=== PATIENT | female | born 1955 | race Caucasian/White ===

== ENCOUNTER → 2017-10-26 14:33 | Outpatient (CLI) | payer OTHER, SELFPAY ==
--- NOTE | 2017-10-26 | XR_ITS ---
XR foot LT min 3V Ordering Physician: Rosemary Thompson Patient Age: 61 years: Female HISTORY: ITS.REASON: LT FOOT PAIN Medial left foot pain TECHNIQUE: 3 views left foot COMPARISON : FINDINGS Hallux valgus deformity . . The first phalangeal metatarsal angle 40 degrees reflects such. Mild degenerative changes first MTP joint. Sclerosis about the first MTP joint. Mild flexion deformity, at toes 2, 3, 4 and 5 toes , with developing hammertoe appearance at these toes Tarsals unremarkable . Early Plantar calcaneal spur 6 mm length. IMPRESSION: Hallux valgus deformity .
== END ==
PROVIDERS: PCP Nurse Practitioner Family; Visit Provider Nurse Practitioner Family
DX: G89.11 Acute pain due to trauma (principal)
CPT/HCPCS: 73630

== ENCOUNTER → 2018-03-09 11:02 | Outpatient (CLI) | payer OTHER, SELFPAY ==
--- NOTE | 2018-03-09 11:03 | MM_ITS ---
MM Dig screening mamm BI w/CAD CAD Screening ORDERING PHYSICIAN : Yuliana Melissa MD PATIENT AGE: 62 years GENDER: Female COMPARISON: Previous mammograms January 2016 [facility] and outside studies [facility] September 2012 and 2010 INDICATION: Routine screening. No hormones no new complaints. Noncontributory family history TECHNIQUE: Standard CC and MLO images were obtained. R2 CAD reviewed. FINDINGS: No new findings. No dominant mass nor suspicious calcifications. CAD computer review highlights no areas of concern either. Very Minor asymmetry stable . Stable small benign intramammary lymph node seen at the deep axilla tail of both right and left breast again observed. IMPRESSION:......... Negative Stable bilateral mammogram with no significant new areas of concern. BI-RADS Category: 1 Negative RECOMMENDED FOLLOW-UP: 1YR - 1 YEAR FOLLOW-UP (A letter has been sent to the patient regarding results of the study.)
== END ==
PROVIDERS: Family Provider Nurse Practitioner Family; PCP Nurse Practitioner Family; Visit Provider Obstetrics & Gynecology
DX: Z12.31 Encounter for screening mammogram for malignant neoplasm of breast (principal)
CPT/HCPCS: 77067

== ENCOUNTER 2018-05-30 23:02 | Inpatient (IN) ==
[2018-05-30 23:21] LABS: Basophils % 0.4 % (0.1-2.0); Eosinophils # 0.3 K/mm3 (0.0-0.4); Hematocrit 40.4 % (37.0-47.0); Hemoglobin 13.4 g/dL (12.2-16.2); Lymphocytes # 2.6 K/mm3 (0.7-4.5); Lymphocytes % 31.1 K/mm3 (10-50); Mean Corpuscular HGB Conc 33.1 g/dL (31.8-35.4); Mean Corpuscular Hemoglobin 30.2 pg (27.0-31.2); Mean Corpuscular Volume 91.4 fl (81-99); Mean Platelet Volume 7.6 fl (7.4-10.4); Monocytes # 0.4 K/mm3 (0.1-1.0); Neutrophils # 4.9 K/mm3 (1.8-7.8); Neutrophils % 59.4 % (37.0-80.0); Platelet Count 246 K/mm3 (142-424); Red Blood Count 4.42 M/mm3 (4.20-5.40); Red Cell Distribution Width 13.7 % (11.5-17.5); White Blood Count 8.3 K/mm3 (4.8-10.8)
[2018-05-30 23:50] LABS: Anion Gap 13.7 mEq/L (5-15); Calcium 9.1 mg/dL (8.5-10.1); Potassium 3.7 mmoL/L (3.5-5.1)
--- NOTE | 2018-05-30 23:53 | Emergency Department Note ---
ED Disposition Clinical Impression: Non-ST elevation [place] (NSTEMI) Disposition: Still a Patient Condition on Discharge: Serious - Critical Care Critical Care Time: Yes Attestation: On 05/30/18, the high probability of a clinically significant, sudden or life threatening deterioration of the following system(s) required my full and direct attention, intervention and personal management. The time I documented below is in addition to time spent performing reported procedures but includes the following listed in this critical care notation. Vital system(s) involved:: Circulatory Failure My critical care processes included: Assessment & monitoring of V/S, Initial and Re-exams, Data Review/Interpretation, Coordinating Care, Medication Orders and management, Documentation Medical Decision Making - Robby Inquiry Pt receiving controlled substance: Yes Robby was queried for this patient: No Reason not queried -: Emergent pt cond-no time Risks and benefits of using a controlled substance: were not discussed with pt by me Vital Signs: 05/30/18 23:03 05/30/18 23:49 05/30/18 23:51 Temperature 98 F Temperature Source Oral Pulse Rate Pulse Rate [Right Radial] 96 H 75 Respiratory Rate 20 16 Blood Pressure Blood Pressure [Right Arm] 153/116 120/72 Blood Pressure Mean [Right Arm] 128 88 Blood Pressure Source [Right Arm] Automatic Cuff Blood Pressure Position [Right Arm] Sitting 02 Sat by Pulse Oximetry 99 98 95 Oxygen Delivery Method Room Air Nasal Cannula Oxygen Flow Rate (LPM) 2 05/31/18 00:11 05/31/18 00:23 05/31/18 00:30 Temperature Temperature Source Pulse Rate Pulse Rate [Right Radial] 91 H 93 H 100 H Respiratory Rate 20 18 20 Blood Pressure Blood Pressure [Right Arm] 149/100 135/79 135/79 Blood Pressure Mean [Right Arm] 116 97 97 Blood Pressure Source [Right Arm] Automatic Cuff Automatic Cuff Blood Pressure Position [Right Arm] Sitting Sitting 02 Sat by Pulse Oximetry 98 99 98 Oxygen Delivery Method Nasal Cannula Nasal Cannula Oxygen Flow Rate (LPM) 2 05/31/18 01:05 Temperature 98 F Temperature Source Pulse Rate 91 H Pulse Rate [Right Radial] Respiratory Rate 20 Blood Pressure 116/70 Blood Pressure [Right Arm] Blood Pressure Mean [Right Arm] Blood Pressure Source [Right Arm] Blood Pressure Position [Right Arm] 02 Sat by Pulse Oximetry Oxygen Delivery Method Nasal Cannula Oxygen Flow Rate (LPM) 2 - Lab Data Lab Results 05/30/18 23:15: WBC 8.3, RBC 4.42, Hgb 13.4, Hct 40.4, MCV 91.4, MCH 30.2, MCHC 33.1, RDW 13.7, Plt Count 246, MPV 7.6, Neut % (Auto) 59.4, Lymph % (Auto) 31.1, [place] % (Auto) 5.0, Eos % (Auto) 4.0, Baso % (Auto) 0.4, Neut # (Auto) 4.9, Lymph # (Auto) 2.6, [place] # (Auto) 0.4, Eos # (Auto) 0.3, Baso # (Auto) 0.0 05/30/18 23:15: Sodium 141, Potassium 3.7, Chloride 103, Carbon Dioxide 28, Anion Gap 13.7, BUN 13, Creatinine 0.93, Estimated Creat Clear 73, Estimated GFR 61, Est GFR ( Amer) 74, Glucose 186 H, Calcium 9.1, Troponin I 1.23 H Result diagrams: 05/30/18 23:15 05/30/18 23:15 Orders (Tests/Meds): ED MEDICATIONS Generic Name Dose Route Start Last Admin Trade Name Freq PRN Reason Stop Dose Admin Enoxaparin Sodium 80 mg 05/30/18 23:45 05/31/18 00:00 Lovenox 80mg/0.8ml Syringe SQ 06/29/18 23:44 80 mg Q12H MITCHELL Administration Nitroglycerin/Dextrose 250 mls @ 1.5 mls/hr 05/30/18 23:45 05/31/18 00:09 Nitroglycerin 50mg/250ml D5w IV 06/29/18 23:44 5 mcg/min .Q24H MITCHELL 1.5 mls/hr Administration Protocol 5 MCG/MIN Eptifibatide 100 mls @ 5 mls/hr 05/31/18 00:31 05/31/18 00:34 Integrilin 200mg/100ml Bottle IV 05/31/18 20:30 5 mls/hr .Q20H ONE Administration Discontinued Medications Generic Name Dose Route Start Last Admin Trade Name Freq PRN Reason Stop Dose Admin Aspirin 324 mg 05/30/18 23:08 05/30/18 23:11 Aspirin 81mg Chewable Tablet PO 05/30/18 23:09 324 mg ONCE ONE Administration Eptifibatide 7.3 mg 05/31/18 00:32 05/31/18 00:34 Integrilin 20mg/10ml Vial IV 05/31/18 00:33 7.3 mg ONCE ONE Administration Metoprolol Tartrate 50 mg 05/30/18 23:57 05/31/18 00:00 Lopressor 50mg Tablet PO 05/30/18 23:58 50 mg ONCE ONE Administration Miscellaneous 1 each 05/31/18 00:31 05/31/18 00:34 Pharmacy Consult Request NOTAPPLIC 05/31/18 00:32 1 each CONSULT PHARMACY ONE Administration Morphine Sulfate 4 mg 05/31/18 00:31 05/31/18 00:41 Morphine 4mg/Ml Syringe IV 05/31/18 00:32 4 mg ONCE ONE Administration Nitroglycerin 0.4 mg 05/30/18 23:51 05/30/18 23:52 Nitrostat 0.4mg Sl Tablet SL 05/30/18 23:52 0.4 mg ONCE ONE Administration Ondansetron HCl 4 mg 05/31/18 00:31 05/31/18 00:42 Zofran 4mg/2ml Vial IV 05/31/18 00:32 4 mg ONCE ONE Administration Ticagrelor 180 mg 05/30/18 23:57 05/31/18 00:00 Brilinta 90mg Tablet PO 05/30/18 23:58 180 mg ONCE ONE Administration ORDERS Category Date Time Status XR chest 2V Stat Exams 05/30/18 23:07 Taken 12-lead EKG Request [ECG Request by /Quin] Stat Y 05/30/18 23:50 Ordered - ECG Data Tracing #1 EKG interpreted by Kendell Naranjo MD: Rhythm: sinus Rate: 93 [place]: normal Ectopy: none Conduction: normal ST Segment Changes: Nonspecific T Wave Changes: Inversion lateral leads and inferior leads Q Waves: none Possible inferior lateral ischemia EKG #2 interpreted by Kendell Naranjo MD: Rhythm: sinus Rate: 97 [place]: normal Ectopy: none Conduction: normal ST Segment Changes: Nonspecific T Wave Changes: Inversion lateral leads and inferior leads Q Waves: none Possible inferior lateral ischemia - Physician Consults Physician Consulted: magui Time: 23:55 Reason -: Cardiology Eval/Care Comment/Response: Discussed case. EKG is transmitted. He requests nitroglycerin drip, Lovenox, Brilinta 180 mg, metoprolol tartrate 50 mg. If pain cannot be controlled, he will contact Dr. Norton for cardiac cath. If her pain goes away, plans on cath tomorrow. Additional Consult: Miracle Time: 00:20 Reason -: Cardiology Eval/Care Comment/Response: Discussed case. He does not feel the patient needs to go to the [facility] tonight. Requests Integrilin bolus and drip and says that he will take the patient to the [facility] in the morning. I discussed Dr. Aldridge's opinion with him. Additional Consult: Magui Time: 00:25 Reason -: Cardiology Eval/Care Comment/Response: Patient's pain level is now 2/10. He is in agreement with waiting till the morning to do cardiac cath. Other Consultation(s): Satish Agrees to admit the patient to the hospital. We discussed the patient's clinical information, including history, exam, laboratory and radiology results and ED course. Per hospital procedure, I will write temporary bridge inpatient orders on the patient. Specific orders requested by the admitting physician: Per cardiology. Discussed blood sugar result. Does not have diabetes. Requests no treatment at this time, no sliding scale, he will recheck in the hospital. General Adult HPI - General Chief complaint: Chest Pain Stated complaint: chest pain Time Seen by Provider: 05/30/18 23:45 Mode of Arrival: Family Vehicle Limitations: No Limitations Description of Symptoms (Recalled from ER Triage Doc. by RN): chest pain that began after taking a second imitrex for a migraine headache at approx 2100 tonight. pt states she got hot and thought her bp dropped and then began having the chest pressure - History of Present Illness HPI narrative: Patient began experiencing a migraine at about 7 PM. Took a couple of Imitrex over the next couple of hours, then developed precordial chest pressure at about 9 PM. It has persisted since then. She has taken Imitrex many times in the past without chest pain. Pain is currently 5/10. No shortness of breath, nausea, diaphoresis, or radiation. Since arrival here the pain is also moved to her left axilla and left clavicular area. No previous similar symptoms. Not have any known heart disease. She does have hypertension. - Related Data Home Medications Medication Instructions Recorded Confirmed clivepril 10 mg tablet 10 mg PO DAILY tab 02/12/18 05/30/18 sumatriptan 100 mg tablet 100 mg PO ONCE 02/12/18 05/30/18 Cetirizine HCl [Zyrtec] 10 mg PO DAILY 05/30/18 05/30/18 Allergies Allergy/AdvReac Type Severity Reaction Status Date / Time No Known Allergies Allergy Verified 05/30/18 23:06 [facility] History I have reviewed the patient's past medical history: Yes Medical History: Reports:: Hypertension, Migraine Denies:: Anxiety, Asthma, Cancer, Depression, Diabetes Mellitus Type 1, Diabetes Mellitus Type 2, Hyperlipidemia, MRSA, Seizures Other Medical History: Denies: Arthritis Other Surgeries: Yes: Diagnostic Lap (2009), Tubal Ligation Amputation: No Fractures: Yes Comment: left foot plantar fasciitis surgery, 2009 lap colo - Social History Smoking Status: Never smoker Alcohol Intake: current Alcohol Intake Frequency:: a few times a week Substance Use Type: denies use - Psychiatric History Expresses thoughts of harming self/others: None Suicide Plan Description: No Plan Pschychiatric History:: Denies:: Anxiety, Depression Family Hx:: Cancer, Heart Attack, Diabetes, Coronary Artery Disease, Tuberculosis, Thyroid Disorder, Kidney Disease, Hypertension, Hyperlipidemia ROS Obtained: Yes All systems reviewed & no additional complaints - Constitutional Constitutional: Denies fever(s) - Cardiovascular Cardiovascular: Reports chest pain - Respiratory Respiratory: No cough, No dyspnea - Gastrointestinal Gastrointestingal: Denies: abdominal pain, vomiting Physical Exam - General General appearance: alert, in no apparent distress - Head Head exam: atraumatic, normocephalic, normal inspection - Eye Eye exam: Present: normal appearance, PERRL, EOMI - ENT ENT exam: Present: mucous membranes moist - Neck Neck exam: Present: normal inspection, full ROM, trachea midline. Absent: meningismus, lymphadenopathy - Chest Chest inspection: Present: normal inspection, symmetric chest wall rise. Absent: tenderness - Respiratory Respiratory exam: Present: normal lung sounds bilaterally. Absent: respiratory distress - Cardiovascular Cardiovascular exam: Present: regular rate, normal rhythm. Absent: JVD - Abdominal Exam Abdominal exam: Present: soft, normal bowel sounds. Absent: distention, tenderness, guarding - Extremities Exam Extremities exam: Present: normal inspection, full ROM, normal capillary refill. Absent: calf tenderness - Neurological Exam Neurological exam: Present: alert, oriented X3 - Psychiatric Psychiatric exam: Present: normal affect, normal mood - Skin Skin exam: Present: warm, dry, intact, normal color
[2018-05-31 05:20] LABS: Chol/HDL Ratio 2.4 (1-3.5)
[2018-05-31 05:33] LABS: INR 0.97 (0.9-1.1)
--- NOTE | 2018-05-31 09:40 | Pharmacy Consult Notes ---
[facility] Pharmacy VTE Monitoring - Patient Demographics Admission date: 05/31/18 Report Date: 05/31/18 Time: 09:40 Allergies/Adverse Reactions: Patient Allergies sumatriptan [From Imitrex] Adverse Reaction (Severe, Verified 05/31/18 08:25) Coronary spasms Height: 1.68 m Weight: 83.574 kg Patient Problems: Current Active Problems Non-ST elevation [place] (NSTEMI) (Acute) - VTE Risk Labs: VTE Related Lab Results Hgb 13.4 g/dL (12.2-16.2) 05/30/18 23:15 Hct 40.4 % (37.0-47.0) 05/30/18 23:15 Plt Count 246 K/mm3 (142-424) 05/30/18 23:15 PT 10.0 seconds (9.4-11.8) 05/30/18 23:15 INR 0.97 (0.9-1.1) 05/30/18 23:15 BUN 13 mg/dL (7-18) 05/30/18 23:15 Creatinine 0.93 mg/dL (0.55-1.02) 05/30/18 23:15 Estimated Creat Clear 73 mL/min (0-300) 05/30/18 23:15 Was VTE Risk Assessment Performed: No VTE Risk Level: Very Low Risk - Prophylaxis Types of VTE Prophylaxis: TEDS Knee High
--- NOTE | 2018-05-31 10:22 | History & Physical Report ---
*Admission Date: 05/31/18 *Chief complaint: Chest pain *History of present illness: Ms. Saldivar is a 62-year-old female with history of migraines who comes in for acute episode of chest pain last night. Reports having had a migraine yesterday and taking 1 100 mg tablet prior to going to a picnic. While at the picnic she developed chest pain that did not improve after going home and resting. Pain is described as pressure-like, substernal. Denies nausea vomiting or syncope. Due to persistent pain she presented to the ER and was found to have an NSTEMI with persistently elevated troponins. Cardiology was consulted and patient was taken for heart cath this morning. Findings on the cath showed normal coronary arteries. Suspect symptoms due to coronary vasospasm. Patient denies any other symptoms at this time. No history of heart failure that she knows of. Home meds consist of lisinopril and cetirizine daily with Imitrex for migraines. Heart cath concerning for decreased ejection fraction, previously unknown. [facility] History I have reviewed the patient's past medical history: Yes Medical History: Reports:: Hypertension, Migraine Denies:: Anxiety, Asthma, Cancer, Depression, Diabetes Mellitus Type 1, Diabetes Mellitus Type 2, Hyperlipidemia, MRSA, Seizures Other Medical History: Denies: Arthritis Other Surgeries: Yes: Cholecystectomy, Diagnostic Lap (2009), Tubal Ligation Amputation: No Fractures: Yes - *Social History Educational Level: Completed College Smoking Status: Never smoker Alcohol Intake: current Alcohol Intake Frequency:: a few times a week Substance Use Type: denies use Occupational Status: employed Housing: house - Psychiatric History Expresses thoughts of harming self/others: None Suicide Plan Description: No Plan Pschychiatric History:: Denies:: Anxiety, Depression *Family Hx:: Cancer, Heart Attack, Diabetes, Coronary Artery Disease, Tuberculosis, Thyroid Disorder, Kidney Disease, Hypertension, Hyperlipidemia Review of Systems - Review of Systems Review of systems:: pertinent systems reviewed and negative unless documented below Meds Home Medications Medication Instructions Recorded Confirmed Type lisinopril 10 mg tablet 10 mg PO DAILY tab 02/12/18 05/31/18 History Cetirizine HCl [Zyrtec] 10 mg PO DAILY 05/30/18 05/31/18 History Allergies Allergy/AdvReac Type Severity Reaction Status Date / Time No Known Drug Allergies Allergy Unknown Verified 05/31/18 09:51 allergy reaction sumatriptan [From Imitrex] AdvReac Severe Coronary Verified 05/31/18 08:25 spasms Exam Vital signs and Labs for Last 24 Hours: Temp Pulse Resp BP Pulse Ox 97.7 F 51 L 16 90/57 97 05/31/18 08:30 05/31/18 09:45 05/31/18 09:45 05/31/18 09:45 05/31/18 09:45 Laboratory Results - last 24 hr 05/30/18 23:15: WBC 8.3, RBC 4.42, Hgb 13.4, Hct 40.4, MCV 91.4, MCH 30.2, MCHC 33.1, RDW 13.7, Plt Count 246, MPV 7.6, Neut % (Auto) 59.4, Lymph % (Auto) 31.1, [place] % (Auto) 5.0, Eos % (Auto) 4.0, Baso % (Auto) 0.4, Neut # (Auto) 4.9, Lymph # (Auto) 2.6, [place] # (Auto) 0.4, Eos # (Auto) 0.3, Baso # (Auto) 0.0 05/30/18 23:15: Sodium 141, Potassium 3.7, Chloride 103, Carbon Dioxide 28, Anion Gap 13.7, BUN 13, Creatinine 0.93, Estimated Creat Clear 73, Estimated GFR 61, Est GFR ( Amer) 74, Glucose 186 H, Calcium 9.1, Troponin I 1.23 H 05/30/18 23:15: PT 10.0, INR 0.97 05/31/18 04:40: Troponin I 2.97 H, Triglycerides 58, Cholesterol 171, LDL Cholesterol 89, VLDL Cholesterol 12, HDL Cholesterol 70, Cholesterol/HDL Ratio 2.4 05/31/18 07:30: Troponin I 3.14 H I & O for Last 24 hours: Intake & Output 05/28/18 05/29/18 05/30/18 05/31/18 23:59 23:59 23:59 23:59 Intake Total 59 / 59 Balance 59 Weight 79.379 kg 83.574 kg - *Routine HEENT Exam Head: Present: normocephalic, atraumatic Eye: Present: EOMI, PERRL ENT: Present: mucous membranes moist - *Routine Neck Exam Present: supple - *Routine Respiratory Exam Present: CTA bilaterally. Absent: accessory muscle use, prolonged expiratory phase, rales, crackles - *Routine Cardiovascular Exam Present: RRR, Normal S1, Normal S2. Absent: murmur - *Routine Abdominal Exam Present: soft - *Routine Rectal Exam Patient deferred: visual exam - *Routine Exam Patient deferred: external exam - *Routine Extremities Exam Present: cyanosis - *Routine Skin Exam Present: intact. Absent: cyanosis, erythema - *Routine Neurological Exam Present: alert, oriented X3, CN II-XII intact. Absent: altered mental status Assessment and Plan (1) Hypertension Current visit: Yes Status: Chronic Qualifiers: Hypertension type: essential hypertension Qualified Code(s): I10 - Essential (primary) hypertension Category: Medical Code(s): I10 - Essential (primary) hypertension (2) Non-ST elevation [place] (NSTEMI) Current visit: Yes Status: Acute Category: Medical Code(s): I21.4 - Non-ST elevation (NSTEMI) myocardial infarction Heart cath with normal coronaries, decreased ejection fraction -Continue management of catheter insertion site -Plan for echocardiogram in the morning to assess EF -If patient has continued depression of EF and degree of heart failure, will need goal-directed therapy including statin, beta-rosenda, MARKO inhibitor, aspirin and future consideration for placement of ICD -Monitor on telemetry overnight
--- NOTE | 2018-06-01 08:35 | Consult Report ---
History of Present Illness Consult date: 06/01/18 Requesting physician: Terry Covarrubias Consult reason: chest pain Chief complaint: chest pain Additional Medical History:: 1. Hypertension 2. History of migraine headaches, with history of Imitrex use History of present illness: 62-year-old white female with history of hypertension migraine headaches presented to the emergency department for chest pressure/tightness that onset after taking second 100 mg Imitrex tablet for migraine headache on Thursday. Patient presented to the emergency department around 11:00 at night and due to symptoms along with elevated troponin was admitted for observation. Symptoms resolved with nitro drip. She was taken to the cardiac [facility] for coronary angiogram which revealed normal coronary arteries but decreased ejection fracti on in the 20-30% range with anterior wall hypokinesis noted. Concern for Tak[place]ubo cardiomyopathy, viral cardiomyopathy or vasospasm induced myocardial infarction with subsequent cardiomyopathy. Patient states she is feeling much better today. She has been taking Imitrex for years without complications. She denies tobacco use or diabetes. [facility] History Medical History: Reports:: Hypertension, Migraine Denies:: Anxiety, Asthma, Cancer, Depression, Diabetes Mellitus Type 1, Diabetes Mellitus Type 2, Hyperlipidemia, MRSA, Seizures Other Medical History: Denies: Arthritis Other Surgeries: Yes: Cholecystectomy, Diagnostic Lap (2009), Tubal Ligation Amputation: No Fractures: Yes - *Social History Educational Level: Completed College Smoking Status: Never smoker Alcohol Intake: current Alcohol Intake Frequency:: a few times a week Substance Use Type: denies use Occupational Status: employed Housing: house - Psychiatric History Expresses thoughts of harming self/others: None Suicide Plan Description: No Plan Pschychiatric History:: Denies:: Anxiety, Depression *Family Hx:: Cancer, Heart Attack, Diabetes, Coronary Artery Disease, Tuberculosis, Thyroid Disorder, Kidney Disease, Hypertension, Hyperlipidemia Meds Home Medications Medication Instructions Recorded Confirmed Type lisinopril 10 mg tablet 10 mg PO DAILY tab 02/12/18 05/31/18 History Cetirizine HCl [Zyrtec] 10 mg PO DAILY 05/30/18 05/31/18 History Allergies Allergy/AdvReac Type Severity Reaction Status Date / Time No Known Drug Allergies Allergy Unknown Verified 05/31/18 09:51 allergy reaction sumatriptan [From Imitrex] AdvReac Severe Coronary Verified 05/31/18 08:25 spasms Review of Systems - *Cardiovascular Reports chest pain, Denies shortness of breath - *Respiratory Denies shortness of breath - *Gastrointestinal Denies abdominal pain - *Genitourinary Denies blood in urine - *Musculoskeletal Denies joint pain - *Neurologic Denies dizziness Exam Vital signs and Labs for Last 24 Hours: Temp Pulse Resp BP Pulse Ox 98.1 F 56 L 18 125/69 98 06/01/18 07:50 06/01/18 07:50 06/01/18 07:50 06/01/18 07:50 06/01/18 07:50 I & O for Last 24 hours: Intake & Output 05/29/18 05/30/18 05/31/18 06/01/18 11:59 11:59 11:59 11:59 Intake Total 59 840 / 840 Output Total 600 / 600 Balance 240 / 240 Weight 184 lb 4 oz 183 lb 3.986 oz - *Routine Neck Exam Present: supple. Absent: JVD, carotid bruit, lymphadenopathy - *Routine Respiratory Exam Present: CTA bilaterally - *Routine Cardiovascular Exam Present: RRR. Absent: murmur, gallop, rubs - *Routine Abdominal Exam Present: soft, normoactive bowel sounds. Absent: tenderness - *Routine Extremities Exam Absent: cyanosis, clubbing, edema - *Routine Neurological Exam Present: alert, oriented X3, moving all extremities Assessment and Plan (1) Hypertension Current visit: Yes Status: Chronic Qualifiers: Hypertension type: essential hypertension Qualified Code(s): I10 - Essential (primary) hypertension Category: Medical Code(s): I10 - Essential (primary) hypertension (2) Non-ST elevation [place] (NSTEMI) Current visit: Yes Status: Acute Category: Medical Code(s): I21.4 - Non-ST elevation (NSTEMI) myocardial infarction (3) Cardiomyopathy Current visit: Yes Status: Acute Category: Medical Code(s): I42.9 - Cardiomyopathy, unspecified - Assessment and plan all Dx Assessment and Plan for all problems:: 1. Continue lisinopril 10 mg daily. 2. We will start Coreg 3.125 mg twice daily. 3. Echocardiogram has been performed today, official reading is pending at this time. If LVEF is less than 35% then would recommend LifeVest. 4. Goal would be to try to get patient home later today or in the morning. Recommend off work until follow-up in 1 week and potentially up to 4-6 weeks.
--- NOTE | 2018-06-01 12:11 | Discharge Summary ---
General - General Admission date:: 05/31/18 Discharge date: 06/01/18 HPI HPI: Ms. Saldivar is a 62-year-old female with history of migraines who comes in for acute episode of chest pain last night. Reports having had a migraine yesterday and taking 1 100 mg tablet prior to going to a picnic. While at the picnic she developed chest pain that did not improve after going home and resting. Pain is described as pressure-like, substernal. Denies nausea vomiting or syncope. Due to persistent pain she presented to the ER and was found to have an NSTEMI with persistently elevated troponins. Cardiology was consulted and patient was taken for heart cath this morning. Findings on the cath showed normal coronary arteries. Suspect symptoms due to coronary vasospasm. Patient denies any other symptoms at this time. No history of heart failure that she knows of. Home meds consist of lisinopril and cetirizine daily with Imitrex for migraines. Heart cath concerning for decreased ejection fraction, previously unknown. Hospital Course Hospital Course: 62-year-old female with history of migraines and hypertension however no history of heart disease presented with acute onset chest pain. Found to have NSTEMI with elevating troponins. Was taken to cardiac labor relations teacher morning after admission where she had no blockages identified. Symptoms and presentation likely due to MX causing coronary vasospasm. Initial concern for decreased ejection fraction during cardiac cath procedure. Patient monitored on telemetry until performance of echocardiogram the morning of the day of discharge. Echocardiogram showed ejection fraction of 25-30%. Patient would benefit from use of LifeVest given EF less than 35. Cardiology to set this up for patient. Initiated goal- directed therapy with initiation of carvedilol, continuation of lisinopril, initiation of atorvastatin and aspirin. Plan to follow with cardiology in 1 week. No further episodes of chest pain. No evidence tonsil symmetry. Patient remained hemodynamically stable. Medically stable for discharge home. Objective Vital signs: Temp Pulse Resp BP Pulse Ox 98.1 F 56 L 18 125/69 98 06/01/18 07:50 06/01/18 07:50 06/01/18 07:50 06/01/18 07:50 06/01/18 07:50 - *Routine HEENT Exam Head: Present: normocephalic, atraumatic Eye: Present: EOMI, PERRL ENT: Present: mucous membranes moist - *Routine Neck Exam Present: supple, full ROM. Absent: JVD, lymphadenopathy - *Routine Respiratory Exam Present: CTA bilaterally. Absent: prolonged expiratory phase, rales, wheezes, crackles - *Routine Cardiovascular Exam Present: RRR, Normal S1, Normal S2. Absent: murmur - *Routine Abdominal Exam Present: soft, normoactive bowel sounds. Absent: tenderness - *Routine Rectal Exam Patient deferred: visual exam - *Routine Exam Patient deferred: external exam - *Routine Extremities Exam Absent: cyanosis, clubbing, edema - *Routine Skin Exam Present: intact. Absent: cyanosis, erythema, lesions Comments: Right radial insertion site from cardiac cath, clean dry and intact, no bleeding or hematoma - *Routine Neurological Exam Present: alert, oriented X3, CN II-XII intact. Absent: altered mental status - Routine Psychiatric Exam Present: normal affect, normal thought process, cooperative DS: Diagnosis - Discharge Diagnosis (1) Hypertension Status: Chronic (2) Non-ST elevation NC (NSTEMI) Status: Acute (3) Cardiomyopathy Status: Acute Discharge Plan - Patient Discharge Instructions ACTIVITY: Continue current activity DIET: low fat, low cholesterol - Follow up Plan Follow up with: Romel Aldridge MD [Staff Physician] - 1 week Terry Covarrubias MD [Staff Physician] - 2 weeks Disposition: Home, Self-M[facility] Medications: Home Medications Medication Instructions Recorded Confirmed Type lisinopril 10 mg tablet 10 mg PO DAILY tab 02/12/18 05/31/18 History Cetirizine HCl [Zyrtec] 10 mg PO DAILY 05/30/18 05/31/18 History Prescriptions/Medication Reconciliation: New Carvedilol [Coreg 3.125mg Tablet] 3.125 mg PO BID 30 Days #30 tablet Nitroglycerin [Nitrostat 0.4mg SL Tablet] 0.4 mg SL Q5MINP PRN 30 Days #100 tab.subl PRN Reason: Chest Pain Atorvastatin Calcium [Atorvastatin 40mg Tab] 40 mg PO DAILY 30 Days #30 tablet Aspirin [Aspir 81] 81 mg PO DAILY 30 Days #30 tablet.dr Continue lisinopril 10 mg tablet 10 mg PO DAILY tab Cetirizine HCl [Zyrtec] 10 mg PO DAILY
== END 2018-06-01 19:42 | disposition home or self-care (01) ==
LOC: ER 23:02 → 2ND 23:02 → OBSVTOIN 05-31 01:25 → 2ND 05-31 01:28
PROVIDERS: ADMIT Internal Medicine Adolescent Medicine; ATTEND Internal Medicine Adolescent Medicine

== ENCOUNTER → 2018-09-07 08:37 | Outpatient (CLI) | payer OTHER, SELFPAY ==
--- NOTE | 2018-09-07 13:16 | CA_ITS ---
PROCEDURE: 2-D M-mode and color Doppler study. INDICATIONS FOR THE TEST: Chest pain COPD Heart Murmur Tobacco Smoking Palpitations Fatigue Syncope Edema Hypertension Diabetes Mellitus Rheumatic Fever SOB OLIVO Obesity Hyperlipidemia Family History HD Additional History CM PATIENT INFORMATION HEIGHT: 66 WEIGHT:178 GENDER: Female B/P:130/84 2-D/M-MODE INTERPRETATION: 2-D MEASUREMENTS OBSERVED VALUES IN CMS Right Ventricular Dimension (RVDd) 2.0 Interventricular Septum (Thickness)(IVsd) 1.0 Left Ventricular Internal Dimensions(LVIDd) 5.4 Left Ventricular Posterior Wall (Thickness)(LVPWd) 0.8 Aortic Root 2.7 Aortic Cusp Separation 1.9 Left Atrial Dimensions (LAD) 3.8 2D 1. Left atrium is mildly enlarged, left ventricle is normal size, mild concentric left ventricular hypertrophy, visually estimated ejection fraction 55% with no regional motion abnormality. 2. The right atrium and right ventricle are normal size and contractility. 3. The aortic valve is minimally thickened and fibrosed. 4. The mitral and tricuspid valvular grossly normal. 5. Pulmonic valve is poorly visualized. 6. No significant pericardial effusion noted. DOPPLER INTERROGATION: Doppler interrogation of the aortic, mitral and tricuspid presence of mild mitral and tricuspid regurgitation, tricuspid regurgitation jet velocity is inadequate for calculation of the right ventricular systolic pressure, grade 1 diastolic dysfunction seen with tissue Doppler evidence of raised left atrial pressure. CONCLUSION: 1. Mildly enlarged left atrium, normal left ventricular size, mild concentric left ventricular hypertrophy, visually estimated ejection fraction 55% with normal motion abnormality. Grade 1 diastolic dysfunction seen with tissue Doppler evidence of raised left atrial pressure. 2. Mild mitral and tricuspid regurgitation 3. No significant pericardial effusion noted.
== END ==
PROVIDERS: PCP Internal Medicine Adolescent Medicine; Visit Provider Internal Medicine
DX: I10 Essential (primary) hypertension (principal); I21.4 Non-ST elevation (NSTEMI) myocardial infarction; I42.9 Cardiomyopathy, unspecified
CPT/HCPCS: 93306

== ENCOUNTER → 2018-12-15 07:58 | Outpatient (CLI) | payer OTHER, SELFPAY ==
--- NOTE | 2018-12-15 08:02 | MR_ITS ---
MR angio head wo con CLINICAL INDICATION: Trigeminal nerve pain on the left radiating to the temporal part of the head ITS.REASON: facial nerve pain, headache ORDERING PHYSICIAN: Jannet Sharp MD PATIENT AGE: 63 years Comparison: None TECHNIQUE: 3-D bovi-di-aklyun images obtained without contrast with multi slab and MIP reformats FINDINGS: No evidence of aneurysm, arteriovenous malformation, or major intracranial occlusive process. Unremarkable vertebral basilar system. Single right MRV shows no evidence of sagittal sinus thrombosis IMPRESSION: Negative MRA of the brain
--- NOTE | 2018-12-15 08:02 | MR_ITS ---
MR head/brain wo/w con HISTORY: Trigeminal nerve pain on left side, facial pain ITS.REASON: facial nerve pain, headache ORDERING PHYSICIAN: Jannet Sharp MD PATIENT AGE: 63 years Comparison: 10/07/2018 TECHNIQUE: Standard multiplanar multiecho sequences are performed without and following 16 mL's of ProHance. FINDINGS: No midline shift, mass effect, intracranial hemorrhage, or hydrocephalus is evident. The cerebellopontine angles, cerebellum, and brainstem are unremarkable. No skull base lesions are evident. Partial empty sella is present as a normal variant. No enhancing lesions. There is normal quiles-white matter differentiation. Small subcortical T2 white matter hyperintensities present in the left parieto-occipital junction nonspecific and may be due to minimal ischemic gliotic change. No sinus air-fluid level or mastoid effusion. The corpus callosum and craniocervical junction have an unremarkable appearance of the hippocampal gyri and temporal horns are symmetric. IMPRESSION: Negative MRI of the brain without and with contrast, no acute finding
[2018-12-15 08:26] LABS: Blood Urea Nitrogen 11 mg/dL (7-18); Creatinine,Serum 0.73 mg/dL (0.55-1.02); Estimated Glomerular Filt Rate 81 ml/min (>60); GFR (African American) 97 ML/MIN (>60)
--- NOTE | 2018-12-15 09:09 | HMH.ITSHM ---
Current Home Medications as stated by this patient Alejandra Saldivar or senior account representative. []asa COREG LISINOPRIL ZYRTEC
== END ==
PROVIDERS: PCP Internal Medicine Adolescent Medicine; Visit Provider Specialist
DX: G43.919 Migraine, unspecified, intractable, without status migrainosus (principal); G50.0 Trigeminal neuralgia
CPT/HCPCS: 36415; 70544; 70553; 82565; 84520; A9576

== ENCOUNTER → 2019-04-26 15:53 | Outpatient (POV) | payer OTHER, SELFPAY | PROVIDERS: Visit Provider Dermatology | DX: Z00.00 Encounter for general adult medical examination without abnormal findings (principal) ==

== ENCOUNTER → 2019-09-14 07:31 | Outpatient (CLI) | payer OTHER, SELFPAY ==
[2019-09-14 09:38] LABS: Blood Urea Nitrogen 12 mg/dL (7-18); Calcium 8.3 mg/dL (8.5-10.1); Carbon Dioxide 31 mmol/L (21.0-32.0); Chloride 102 mmol/L (98-107); Creatinine,Serum 0.73 mg/dL (0.55-1.02); Estimated Glomerular Filt Rate 81 ml/min (>60); GFR (African American) 97 ML/MIN (>60); Glucose 94 mg/dL (74-106); Sodium 137 mmol/L (136-145)
== END ==
PROVIDERS: Visit Provider Internal Medicine Cardiovascular Disease
DX: E78.2 Mixed hyperlipidemia (principal); I10 Essential (primary) hypertension
CPT/HCPCS: 36415; 80048

== ENCOUNTER → 2019-09-27 13:23 | Outpatient (CLI) | payer OTHER, SELFPAY ==
--- NOTE | 2019-09-27 13:28 | CT_ITS ---
PROCEDURE: CT HEART W CALCIUM SCORE CLINICAL HISTORY: SCREENING COMPARISON: No exams were available for comparison TECHNIQUE: Axial images obtained with sagittal and coronal reformats. All CT scans at the facility use one or more dose reduction, viz: automated exposure control, ma/kV adjustment per patient size (including targeted exams where dose is matched to indication, i.e. head), or iterative reconstruction technique. FINDINGS: Coronary artery calcium score is 0 indicating no identifiable calcific atherosclerotic with very low cardiovascular disease risk. IMPRESSION: Coronary artery calcium score is 0 indicating no identifiable calcific atherosclerotic with very low cardiovascular disease risk. Dictated by: Josue Beltran MD 09/29/2019 08:02 Electronically signed by Josue Beltran MD in [place] 09/29/2019 08:02
== END ==
PROVIDERS: PCP Internal Medicine Adolescent Medicine; Visit Provider Internal Medicine Cardiovascular Disease
DX: Z13.6 Encounter for screening for cardiovascular disorders (principal)
CPT/HCPCS: 75571

== ENCOUNTER → 2019-11-07 15:31 | Outpatient (CLI) | payer OTHER, SELFPAY ==
--- NOTE | 2019-11-07 15:31 | MM_ITS ---
PROCEDURE: MM DIG SCREENING MAMM BI W/CAD CLINICAL INDICATION: Routine Screening Mammogram There is no personal or family history of breast cancer COMPARISON: MAMMO DIGITAL BILAT SCREENING from 04/19/2014 [facility] DIG MAMM-SCREEN [facility] from 02/19/2016 [facility] MM Dig screening mamm BI w/CAD from 03/09/2018 TECHNIQUE: Standard CC and MLO images and 3D Tomosynthesis was obtained. R2 CAD reviewed. FINDINGS: Scattered fibroglandular densities are seen throughout both breasts. There is no suspicious lesion in either breast and no suspicious microcalcifications. There are stable nodular densities in each breast near the axillary tail likely low-lying nodes. Brandin images were reviewed. IMPRESSION: Fibrofatty parenchyma with no suspicious lesions seen BI-RAD Category: 1 Negative FOLLOW-UP: 1YR 1 Year Follow-up (A letter has been sent to the patient regarding results of the study.) Dictated by: Dr. Colin Miramontes MD 11/08/2019 19:[address] Colin Miramontes MD in [place] 11/08/2019 19:39
== END ==
PROVIDERS: PCP Internal Medicine Adolescent Medicine; Visit Provider Obstetrics & Gynecology
DX: Z12.31 Encounter for screening mammogram for malignant neoplasm of breast (principal)
CPT/HCPCS: 77063; 77067

== ENCOUNTER → 2020-04-18 07:57 | Outpatient (CLI) | payer OTHER, SELFPAY ==
[2020-04-18 12:53] LABS: Coronavirus 19 IgG Antibody Negative (Negative); Coronavirus 19 IgM Antibody Negative (Negative)
== END ==
PROVIDERS: Visit Provider Internal Medicine Gastroenterology
DX: Z01.818 Encounter for other preprocedural examination (principal)
CPT/HCPCS: 36415; 86328

== ENCOUNTER 2020-04-20 06:56 | Day surgery (SDC) | payer OTHER, SELFPAY ==
[2020-04-12 10:01] VITALS: BMI 28.7
[2020-04-20] VITALS (7 sets, daily range): BP systolic 96–137; BP diastolic 39–77; PULSE 50–72; RESP 16–20; TEMP 36.2; O2SAT 96–100
--- NOTE | 2020-04-20 07:33 | HMH.ANESCL ---
[facility] Anesthesia Checklist - Patient Identification Patient Identification: Arm Band - Structural Data Admitted From: Home Planned Operative Procedure/s: colonoscopy Consent for Planned Operative Procedure(s) Verified: Yes Verified Documents: Surgical Consent, History and Physical - NPO Status Verified Time NPO: 00:00 - Additional verifications Anesthesia Reactions: No - Airway Assessment C-Spine Mobility Assessed: Yes (mp2) TMJ Mobility Assessed: Yes Dentition: Good Dentition - Neurological Assessment Level of Consciousness: Awake, Alert - Anesthesia Plan Anesthesia Risk discussed: Yes Anesthesia Plan: Verified ASA Class: II Anesthesia Type: MAC [facility] History I have reviewed the patient's past medical history: Yes Medical History: Reports:: Cardiomyopathy, Coronary Artery Disease, Hypertension, Migraine, Osteoporosis Denies:: Anxiety, Asthma, Cancer, Depression, Diabetes Mellitus Type 1, Diabetes Mellitus Type 2, Hyperlipidemia, Internal Pacemaker, MRSA, Seizures *Have you ever received a pneumonia vaccine?: No *Have you received a flu vaccine this season?: Yes Other Medical History: Reports: Arthritis, Osteoporosis Anesthesia experience/problems:: nac Laterality Cases: Left: Other Other Surgeries: Yes: Cardiac Catheterization, Cholecystectomy, Diagnostic Lap, Tubal Ligation. No: Pacemaker Amputation: No Fractures: Yes - *Social History Last grade of school completed: Some college Smoking Status: Never smoker Alcohol Intake: current Alcohol Intake Frequency:: holidays/special occasions only Substance Use Type: denies use *Occupational Status:: employed Housing: house Household Members: spouse *Travel in the last 8 weeks: None - Psychiatric History Pschychiatric History:: Denies:: Anxiety, Depression Family Hx:: Cancer, Diabetes, Hypertension
--- NOTE | 2020-04-20 08:31 | P.PCN_ITS ---
[facility] Procedure Note Procedure Note:: Colonoscopy Procedure Report: Colonoscopy Endoscopist: Ramu Eral II, MD Referring physician: Terry Covarrubias MD Date of Procedure: April 20, 2020 Equipment: Olympus 180 variable stiffness pediatric colonoscope Sedation: MAC sedation Indication: Mrs. Saldivar is a 64-year-old female who is here for screening/surveillance colonoscopy. She had a normal colonoscopy 10 years ago ([facility] in [place]). She reports no abdominal pain, weight loss, change in her bowel habits or rectal bleeding. She does have some intermittent alternating IBS with both constipation and diarrhea. She will use an occasional stool softener. She does state that her father had colon cancer at the age of 83. Procedure: Prior to the procedure, a history and physical exam was performed, and patient's medications and allergies were reviewed. The risks, benefits and alternatives of the sedation and procedure were discussed with the patient. All questions were answered and informed consent was obtained. The patient was brought to the procedure room. Patient identification and proposed procedure were verified by the physician and the nurse. The patient was placed in a left lateral decubitus position and the scope was passed under direct vision. Throughout the procedure, the patient's blood pressure, pulse, and oxygen saturations were monitored continuously. The colonoscopy was accomplished without difficulty. The patient tolerated the procedure well. Findings: On digital rectal examination there was normal rectal tone. There were no external hemorrhoids. The colonoscope was introduced through the anal canal to the rectum and advanced to the cecum. The ileocecal valve and appendiceal orifice were identified. The scope was advanced a short distance into the ileum which appeared grossly normal. The scope was then withdrawn into the colon. The cecum, ascending, transverse, descending, sigmoid and rectum were grossly normal. There were no mucosal abnormalities identified. Upon retroflexion within the rectum there were grade 1 internal hemorrhoids.The preparation was excellent throughout with Blandon Preparation Score of 9. The cecal time was 9 minutes. Impression: 1. Normal colonoscopy with intubation of the terminal ileum Plan: I would recommend repeat surveillance colonoscopy again in 10 years. 5-year surveillance interval is indicated for first-degree relative with colon cancer under age 65. I would encourage a fiber bowel regimen.
== END 2020-04-20 09:32 | disposition home or self-care (01) ==
LOC: OUTP 06:57
PROVIDERS: PCP Internal Medicine Adolescent Medicine; Visit Provider Internal Medicine Gastroenterology
PROC: 0DJD8ZZ Inspection of Lower Intestinal Tract, Via Natural or Artificial Opening Endoscopic (ICD-10-PCS; CPT 45378; principal; 2020-04-20 08:00)
DX: Z12.11 Encounter for screening for malignant neoplasm of colon (principal); K58.2 Mixed irritable bowel syndrome; Z80.0 Family history of malignant neoplasm of digestive organs; I25.10 Atherosclerotic heart disease of native coronary artery without angina pectoris; I10 Essential (primary) hypertension; M81.0 Age-related osteoporosis without current pathological fracture; G43.909 Migraine, unspecified, not intractable, without status migrainosus; M19.90 Unspecified osteoarthritis, unspecified site; Z90.49 Acquired absence of other specified parts of digestive tract; Z83.3 Family history of diabetes mellitus; Z82.49 Family history of ischemic heart disease and other diseases of the circulatory system; Z88.8 Allergy status to other drugs, medicaments and biological substances
CPT/HCPCS: 45378

== ENCOUNTER → 2020-05-21 07:36 | Outpatient (CLI) | payer OTHER, SELFPAY ==
[2020-05-21 08:12] LABS: Coronavirus 19 IgG Antibody Negative (Negative); Coronavirus 19 IgM Antibody Negative (Negative)
== END ==
PROVIDERS: Visit Provider Ophthalmology
DX: Z01.818 Encounter for other preprocedural examination (principal)
CPT/HCPCS: 36415; 86328

== ENCOUNTER 2020-05-22 06:35 | Day surgery (SDC) | payer OTHER, SELFPAY ==
[2020-05-17 13:37] VITALS: BMI 29.0
[2020-05-22] VITALS (7 sets, daily range): BP systolic 131–152; BP diastolic 56–86; PULSE 49–61; RESP 16–18; TEMP 36.2; O2SAT 97–100
== END 2020-05-22 08:50 | disposition home or self-care (01) ==
LOC: OR 06:36
PROVIDERS: PCP Internal Medicine Adolescent Medicine; Visit Provider Ophthalmology
PROC: (CPT 66984; principal; 2020-05-22 08:00)
DX: H25.813 Combined forms of age-related cataract, bilateral (principal); H53.8 Other visual disturbances; H53.149 Visual discomfort, unspecified; I25.10 Atherosclerotic heart disease of native coronary artery without angina pectoris; I10 Essential (primary) hypertension; E78.5 Hyperlipidemia, unspecified; Z79.899 Other long term (current) drug therapy; Z79.82 Long term (current) use of aspirin; Z83.518 Family history of other specified eye disorder; Z82.49 Family history of ischemic heart disease and other diseases of the circulatory system; Z84.89 Family history of other specified conditions; Z78.0 Asymptomatic menopausal state
CPT/HCPCS: 66984; V2632

== ENCOUNTER → 2020-06-18 07:23 | Outpatient (CLI) | payer OTHER, SELFPAY ==
[2020-06-18 09:36] LABS: Coronavirus 19 IgG Antibody Negative (Negative); Coronavirus 19 IgM Antibody Negative (Negative)
== END ==
PROVIDERS: Visit Provider Ophthalmology
DX: Z01.89 Encounter for other specified special examinations (principal); H26.9 Unspecified cataract
CPT/HCPCS: 36415; 86328

== ENCOUNTER 2020-06-19 06:29 | Day surgery (SDC) | payer OTHER, SELFPAY ==
[2020-06-14 10:37] VITALS: BMI 28.5
[2020-06-19 06:53] VITALS: BP 139/73; PULSE 56; RESP 18; TEMP 36.2; O2SAT 98
[2020-06-19 07:50] VITALS: BP 132/60; PULSE 52; RESP 16; O2SAT 100
[2020-06-19 07:55] VITALS: BP 126/60; PULSE 59; RESP 16; O2SAT 100
[2020-06-19 08:00] VITALS: BP 124/63; PULSE 51; RESP 16; O2SAT 100
[2020-06-19 08:05] VITALS: BP 126/64; PULSE 50; RESP 16; O2SAT 100
[2020-06-19 08:12] VITALS: BP 143/73; PULSE 64; RESP 16; TEMP 36.4; O2SAT 100
== END 2020-06-19 08:22 | disposition home or self-care (01) ==
PROVIDERS: PCP Internal Medicine Adolescent Medicine; Visit Provider Ophthalmology
PROC: (CPT 66984; principal; 2020-06-19 07:30)
DX: H26.9 Unspecified cataract (principal); I25.10 Atherosclerotic heart disease of native coronary artery without angina pectoris; I10 Essential (primary) hypertension; Z82.49 Family history of ischemic heart disease and other diseases of the circulatory system; Z84.89 Family history of other specified conditions; Z88.8 Allergy status to other drugs, medicaments and biological substances; Z79.82 Long term (current) use of aspirin; Z79.899 Other long term (current) drug therapy
CPT/HCPCS: 66984; V2632

== ENCOUNTER → 2021-03-08 11:05 | Outpatient (CLI) | payer MEDICARE, OTHER, SELFPAY | PROVIDERS: PCP Internal Medicine Adolescent Medicine; Visit Provider Nurse Practitioner Family | DX: I42.8 Other cardiomyopathies (principal) | CPT/HCPCS: 93308 ==

== ENCOUNTER 2021-07-10 13:49 | Emergency (ER) | payer MEDICARE, OTHER, SELFPAY ==
[2021-07-10 13:57] VITALS: BP 150/77; PULSE 74; RESP 16; TEMP 36.4; O2SAT 99; BMI 28.5
--- NOTE | 2021-07-10 14:25 | HMH.EDUTC ---
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 Elevate the extremity as tolerated while you are resting. Soak your foot in warm epsom salts water a couple times per day for the next few day for around 10 minutes each time. Take the medrol dose pack (steroids) as directed to see if it will reduce the inflammation in your foot related to your osteoarthritis. Follow up with Dr. Blackman (podiatry). Tthere can always be causes of your pain that don't show up well on regular x-rays, so you will need further evaluation of your foot. I put in a referral to Dr. Blackman, but you need to call her office and schedule an appointment. Follow up with your regular doctor also to make sure they know what is going on with you. GO TO THE ER FOR ANY WORSENING SYMPTOMS Prescriptions: methylPREDNISolone [Medrol] 4 mg PO DIRECTED 6 Days #21 packet Transmission Status: Pending to [facility] Referrals: Terry Covarrubias MD [Primary Care Provider] - Tana Blackman DPM [Staff Physician] - Time of Disposition: 15:30 Medical Decision Making - Medical Records Medical records reviewed: No: I reviewed the patient's medical records. - Robyb Inquiry Pt receiving controlled substance: No Vital Signs: 07/10/21 13:57 07/10/21 15:21 Temperature 97.6 F 97.6 F Temperature Source Oral Pulse Rate 74 Pulse Rate [Left] 74 Respiratory Rate 16 18 Blood Pressure 150/77 H Blood Pressure [Right Arm] 150/77 H Blood Pressure Mean [Right Arm] 101 02 Sat by Pulse Oximetry 99 - Radiology Data #1 Image(s): Foot/Toes Image Reviewed: Yes I reviewed the patient's radiology image, Yes I have reviewed radiologist's interpretation Preliminary Findings: Abnormal, No Fracture Seen PROCEDURE: XR FOOT RT MIN 3V CLINICAL INDICATION: foot and ankle pain, no known injury COMPARISON: CR [id number] XR foot LT min 3V from 10/26/2017 FINDINGS: There are mild osteoarthritic changes with bony spurring dorsally at the navicular cuneiform and cuneiform metatarsal joint. There is a small calcaneal spur. There is minimal hallux valgus with mild osteoarthritic changes at the 1st MTP joint. There is a type 2 os navicularis. There osteoarthritic changes at the head of the 1st metatarsal with the dominant sesamoid. No acute fracture or dislocation. No lytic or blastic change. IMPRESSION: Osteoarthritic changes as described above. Dictated by: Josue Beltran MD 07/10/2021 14:52 Josue Beltran MD in [place] 07/10/2021 14:52 #2 Image(s): Ankle Image Reviewed: Yes I reviewed the patient's radiology image, Yes I have reviewed radiologist's interpretation Preliminary Findings: Normal/NAD, No Fracture Seen PROCEDURE: XR ANKLE RT MIN 3V CLINICAL INDICATION: foot and ankle pain, no known injury COMPARISON: No exams were available for comparison FINDINGS: No fracture or dislocation. No lytic or blastic change. There is normal mineralization. The joint spaces are well-preserved. No significant degenerative/arthritic changes. No erosive changes evident. Other findings:None. IMPRESSION: No acute findings. Dictated by: Josue Beltran MD 07/10/2021 14:52 Josue Beltran MD in [place] 07/10/2021 14:52 [facility] [place] HPI - General Stated complaint: right foot pain Time Seen by Provider: 07/10/21 14:32 Mode of Arrival: Ambulatory Source of Information: Patient Limitations: No Limitations Description of Symptoms (Recalled from Triage Doc. by RN): pt woke up yesterday am and the top of her R foot was hurting. no i
[2021-07-10 15:21] VITALS: BP 150/77; PULSE 74; RESP 18; TEMP 36.4
== END 2021-07-10 15:34 | disposition home or self-care (01) ==
PROVIDERS: Emergency Provider Nurse Practitioner Family; PCP Internal Medicine Adolescent Medicine
DX: M19.271 Secondary osteoarthritis, right ankle and foot (principal); M79.671 Pain in right foot; I25.10 Atherosclerotic heart disease of native coronary artery without angina pectoris; I10 Essential (primary) hypertension; I25.2 Old myocardial infarction; M81.0 Age-related osteoporosis without current pathological fracture
CPT/HCPCS: 73610; 73630; 99202; G0463

== ENCOUNTER → 2022-03-10 09:57 | Outpatient (CLI) | payer MEDICARE, OTHER, SELFPAY ==
--- NOTE | 2022-03-10 09:57 | MM_ITS ---
PROCEDURE INFORMATION: Exam: MG Bilateral Screening 3D Mammography Exam date and time: 03/10/2022 10:12 AM Age: 66 years old Clinical indication: Screening mammogram. TECHNIQUE: Imaging protocol: Bilateral Screening tomosynthesis and 2D mammography including computer-aided detection (CAD) when performed. COMPARISON: 1. MG MM DIG SCREENING MAMM BI W/CAD 11/07/2019 3:46 PM 2. MG [facility] MM Dig screening mamm BI w/CAD 03/09/2018 11:10 AM 3. MG [facility] DIG MAMM-SCREEN [place] 02/19/2016 3:13 PM 4. MG MAMMO DIGITAL BILAT SCREENING 04/19/2014 3:45 PM FINDINGS: MAMMOGRAPHY: Breast composition: There are scattered areas of fibroglandular density. Mass: None. Architectural distortion: No new or suspicious architectural distortion. Calcifications: No new or suspicious calcifications are present Asymmetric density: No new or suspicious asymmetric density is present Skin thickening: None. Axillary adenopathy: None. IMPRESSION: No mammographic evidence of malignancy. Recommend annual screening mammography unless otherwise clinically indicated. ASSESSMENT: BI-RADS category 1: Negative
== END ==
PROVIDERS: PCP Internal Medicine Adolescent Medicine; Visit Provider Obstetrics & Gynecology
DX: Z12.31 Encounter for screening mammogram for malignant neoplasm of breast (principal)
CPT/HCPCS: 77063; 77067

== ENCOUNTER → 2022-09-11 09:32 | Outpatient (CLI) | payer MEDICARE, OTHER, SELFPAY ==
[2022-09-11 10:39] LABS: Alanine Aminotransferase 18 U/L (12-78); Albumin Level 4.5 g/dl (3.5-5.0); Alkaline Phosphatase 123 U/L (38-126); Aspartate Amino Transferase 26 U/L (14-36); Bilirubin,Indirect 0.2 mg/dL (0.0-0.9); Bilirubin,Total 0.2 mg/dl (0.2-1.3); Bilirubin,Unconjugated 0.2 mg/dL (0.0-1.1); Chol/HDL Ratio 2.5 (1-3.5); Cholesterol 245 mg/dl (140-200); HDL Cholesterol 98 mg/dl (40-60); Total Protein,Serum 7.2 g/dl (6.3-8.2); Triglycerides 54 mg/dl (30-150); VLDL Cholesterol 11 mg/dL (0-40)
[2022-09-11 10:51] LABS: Direct LDL Cholesterol 97.08 mg/dL (100-129)
== END ==
PROVIDERS: PCP Internal Medicine Adolescent Medicine; Visit Provider Nurse Practitioner Family
DX: E78.2 Mixed hyperlipidemia (principal); I10 Essential (primary) hypertension; I42.9 Cardiomyopathy, unspecified
CPT/HCPCS: 36415; 80061; 80076

== ENCOUNTER → 2023-05-28 09:10 | Outpatient (POV) | payer MEDICARE, OTHER, SELFPAY | PROVIDERS: Visit Provider Specialist/Technologist | DX: Z00.00 Encounter for general adult medical examination without abnormal findings (principal) ==

== ENCOUNTER 2025-02-10 07:23 | Outpatient (CLI) | payer MEDICARE, OTHER, SELFPAY ==
--- NOTE | 2025-02-10 08:15 | XR_ITS ---
FINAL REPORT TECHNIQUE: Bone densitometry calculations of the lumbar spine and left hip were obtained. CLINICAL HISTORY: SCREENING COMPARISON: None FINDINGS: Using L1-4, the bone mineral density of the spine is 1.083 g/cm2, corresponding to T-score of 0.3 and a Z score of 2.4. This is within the range of normal. Using the left hip, the bone mineral density of the femoral neck is 0.813 g/cm2, corresponding to a T-score of -1.1 and a Z-score of 0.4. This is within the range of osteopenia. Using the right hip, the bone mineral density of the femoral neck is 0.720 g/cm?, responding to a T-score of -1.2 and a Z-score of 0.6. This is within the range of osteopenia. NOTE: T-score: Standard deviation compared with peak bone mass of young adult mean. *Following the recommendations of the International Society of Bone densitometry, classification of hip BMD is based on the lower of two T-scores; total hip or femoral neck. IMPRESSION: 1. Bone mineral density of the lumbar spine within the range of normal. 2. Bone mineral density of the bilateral femoral necks within the range of osteopenia. Reviewed, Interpreted and Dictated by Salena Perez MD Transcribed by Ladi Prajapati Authenticated and [facility]
== END 2025-02-10 23:59 | disposition home or self-care (01) ==
LOC: RAD 07:24
PROVIDERS: PCP Family Medicine; Visit Provider Family Medicine
DX: M81.0 Age-related osteoporosis without current pathological fracture (principal)
CPT/HCPCS: 77080

== ENCOUNTER 2025-03-27 09:43 | Outpatient (CLI) | payer MEDICARE, OTHER, SELFPAY ==
--- OUTSIDE RECORDS SUMMARY | 2025-03-27 09:46 | XMS_ITS | Continuity of Care Document ---
Author Organization [facility] Formerly [facility], later [facility] Address [address] [place] [address]. [place] [address] Assessment No assessment recorded. Plan of Treatment Reminders Order Date Submit Date Provider Last Modified By Organization Details Last Modified Time Details Appointments None recorded. Lab None recorded. Referral None recorded. Procedures None recorded. Surgeries None recorded. Imaging None recorded. Medication Orders lidocaine 5 % topical ointment [address], [address], 5 17:26:25 aspirin 81 mg tablet,robert yed release [address], [address], 5 17:26:26 clopidogrel 75 mg tablet [address], [address], 5 17:26:25 pantoprazol e 40 mg tablet,robret yed release [address], [address], 5 17:26:26 Patient TargetsNo targets recorded. Patient InstructionsNo instructions recorded. Reason for Referral None Reported. Problems Name Problem SNOMED Code Status Onset Date Resolution Date Notes Provider Name and Address Organization Details Recorded Time Migraine 28599986 Active 2022 Manny Davidson null, [place] - [facility] 3 09:49:45 Trigeminal neuralgia 99788230 Active 2022 Crystaldasha Davidson null, [place] - [facility] 3 09:48:55 Osteoarthritis 049904491 Active 2022 Crystaldasha Davidson null, [place] - [facility] 3 09:49:17 Essential hypertension 33879293 Active 2022 Crystaldasha Davidson null, [place] - [facility] 3 09:49:31 Influenza caused by Influenza A virus 476350255 Active 2024 Amie Turner, JUNIOR MECHANICAL ENGINEER [address], [place], [address], [place] - [facility] 5 11:39:21 Seasonal allergy 371206974 Active 2024 Mitch Padma, DO [address], [place], [address], [place] - [facility] 5 12:43:07 Senile osteopenia 33089820 Active 2024 Mitch Rouse, DO [address], [place], [address], [place] - [facility] 5 17:49:18 Takotsubo cardiomyopathy 255953064 Active 2024 Mitch Rouse, DO [address], [place], [address], [place] - [facility] 5 17:22:46 Problem Notes None recorded. Procedures Surgical History Date Name Laterality Status Provider Name and Address Organization Details Recorded Time 5 Advance Care Planning completed Darryl Snedegar [place] - [facility] 11/17/2024 09:29:23 5 Functional Status Assessed completed Darryl Snedegar [place] - [facility] 11/17/2024 09:29:23 4 Advance Care Planning completed Darryl Snedegar [place] - [facility] 11/02/2023 09:34:20 4 Functional Status Assessed completed Darryl Snedegar [place] - [facility] 11/02/2023 09:34:20 3 Advance Care Planning completed Darryl Marcial [place] - [facility] 11/20/2022 08:29:26 3 Functional Status Assessed completed Darryl Marcial [place] [facility] 11/20/2022 08:29:26 0 Eye Surgery completed Manny Davidson [place] - [facility] 10/02/2022 10:17:42 9 Cardiac Cath completed Manny Davidson [place] [facility] 10/02/2022 10:17:42 8 Colposcopy completed Manny Davidson [place] [facility] 10/02/2022 10:17:40 5 Tubal Ligation completed Rachel Canas [place] - [facility] 11/24/2024 08:04:17 5 Adnexal surgery completed Manny Davidson [place] - [facility] 10/02/2022 10:17:42 Imaging Results None recorded. Procedure Notes None recorded. Medical Equipment None Reported. Allergies Allergen ID Allergen Name Allergen Category Reaction Reaction Severity Criticality Documentation Date Start Date Code Code System Note Provider Name and Address Organization Details Recorded Time 595011 Imitrex medicatio n anaphylax is severe high 10/02/2022 40106 3 RxNorm Manny zavaleta, [place] - [facility] 3 08:50:49 Medications Name Sig Start Date Stop Date Status Note LastModified by Organization Details LastModified Time atorvasta tin 20 mg tablet TAKE 1 TABLET BY MOUTH AT BEDTIME active Not Available Not Available No t Available fluconazo le 150 mg tablet Take 1 tablet every 72 hours by oral route for 3 days. 11/20 completed Not Available Not Available Not Available hydrocodo ne 5 mg-acetam inophen 325 mg tablet TAKE ONE (1) TABLET TWICE A DAY BY ORAL ROUTE FOR 30 DAYS. 05/17 completed Not Available Not Available Not Available Zithromax Z-Colin 250 mg tablet take 2 tablets (500 mg) by oral route once daily for 1 day then 1 tablet (250 mg) by oral route once daily for 4 days 08/14 completed Zithroma x Z-Colin 250 mg oral tablet;P rescribe Status: Prescrib ed on: 08/01/20 15 5:12PM;D iscontin ued Status: Disconti nued on: 08/14/20 15 4:42PM;U ser: gored;Es t. Completi on: 08/06/20 15;Pharm acyVerif ied: 08/01/20 15 5:12PM Not Available Not Available Not Available hydroxyzi ne pamoate 50 mg capsule 01/26 completed Not Available Not Available Not Available penicilli n V potassium 500 mg tablet 05/14 completed Not Available Not Available Not Available clopidogr el 75 mg tablet Take 1 tablet every day by oral route for 90 days. 2024 active Not Available Not Available Not Avai lable aspirin 81 mg tablet,de layed release Take 1 tablet every day by oral route for 90 days. 2024 active Not Available Not Available Not Avai lable carvedilo l 3.125 mg tablet 01/26 completed Not Available Not Available Not Available ondansetr on 8 mg disintegr ating tablet PLACE ONE (1) TABLET ON TOP OF TONGUE, WHERE IT WILL DISSOLVE , TWICE A DAY FOR 7 DAYS. 05/17 completed Not Available Not Available Not Available ketorolac 10 mg tablet TAKE ONE (1) TABLET EVERY SIX (6) HOURS BY ORAL ROUTE FOR FIVE (5) DAYS. 05/17 completed Not Available Not Available Not Available Bentyl 20 mg tablet take 1 tablet (20 mg) by oral route 4 times per day for 10 days prn 10/21 completed Bentyl 20 mg oral tablet;R ecorded Status: Recorded on: 05/06/20 12 9:34AM;D iscontin ued Status: Disconti nued on: 10/21/19 13 4:15PM;U ser: gored;Es t. Completi on: 05/16/20 12;Print ed: 05/06/20 12 Not Available Not Available Not Available Nexium 20 mg capsule,d elayed release take 1 capsule (20 mg) by oral route once daily for 30 days 01/20 completed Nexium 20 mg oral capsule, delayed release( DR/EC);R ecorded Status: Recorded on: 04/02/20 11 4:32PM;D iscontin ued Status: Disconti nued on: 01/21/20 12 4:30PM;U ser: blumc;Es t. Completi on: 07/01/20 11;Print ed: 04/02/20 11 Not Available Not Available Not Available meloxicam 7.5 mg tablet TAKE ONE (1) TABLET EVERY DAY BY ORAL ROUTE WITH A MEAL FOR 90 DAYS. active Not Available Not Available No t Available carbamaze pine 200 mg tablet TAKE ONE AND A HALF (1 & 1/2) TABLETS BY MOUTH EVERY 12 HOURS FOR 90 DAYS. active Not Available Not Available No t Available Mobic 15 mg tablet take 1 tablet (15 mg) by oral route once daily 12/15 completed Mobic 15 mg oral tablet;P rescribe Status: Prescrib ed on: 07/21/20 14 10:35AM; Disconti nued Status: Disconti nued on: 12/16/19 15 2:33PM;U ser: carlene; Est. Completi on: 08/20/20 14;Pharm acyVerimarco ied: 07/21/20 14 10:35AM Not Available Not Available Not Available gentamici n 0.3 % eye drops instill 2 drops into affected eye(s) by ophthalm ic route every 4 hours for 7 days 08/14 completed gentamic in 0.3 % ophthalm ic drops;Pr escribe Status: Prescrib ed on: 08/01/20 15 5:12PM;D iscontin ued Status: Disconti nued on: 08/14/20 15 4:42PM;U ser: gored;Es t. Completi on: 08/08/20 15;Pharm acyVerif ied: 08/01/20 15 5:12PM Not Available Not Available Not Available pantopraz ole 40 mg tablet,de layed release Take 1 tablet every day by oral route for 90 days. 2024 active Not Available Not Available Not Avai lable lisinopri l 10 mg tablet take 1 tablet (10 mg) by oral route once daily 10/02 completed lisinopr il 10 mg oral tablet;P rescribe Status: Prescrib ed on: 02/29/20 16 4:39PM;U ser: grayn;Es t. Completi on: 08/27/20 16;Indic ation: Hyperten julian - ([phone]);Phar Max fied: 02/29/20 16 4:39PM Not Available Not Available Not Available gabapenti n 300 mg capsule TAKE ONE (1) CAPSULE THREE (3) TIMES A DAY BY ORAL ROUTE AFTER MEAL(S) FOR 30 DAYS. 01/26 completed Not Available Not Available Not Available Imitrex 100 mg tablet take 1 tablet (100 mg) by oral route once for 1 days 02/28 completed Imitrex 100 mg oral tablet;P rescribe Status: Prescrib ed on: 02/29/20 16 4:39PM;U ser: grayn;Es lonny. Giovani on: 03/06/20 16;Pharm acyVgregoryf ied: 02/29/20 16 4:39PM Not Available Not Available Not Available azelastin e 137 mcg (0.1 %) nasal spray 01/26 completed Not Available Not Available Not Available methylpre dnisolone 4 mg tablets in a dose pack 11/03 completed Not Available Not Available Not Available Lomotil 2.5 mg-0.025 mg tablet take 2 tablets (5 mg) by oral route 4 times per day as needed for 7 days 10/21 completed Lomotil 2.5-0.02 5 mg oral tablet;R ecorded Status: Recorded on: 05/06/20 12 9:34AM;D iscontin ued Status: Disconti nued on: 10/21/19 13 4:15PM;U ser: gored;Katherine t. Completi on: 05/13/20 12 Not Available Not Available Not Available ketorolac 60 mg/2 mL intramusc ular solution Inject 2 mL every day by intramus cular route. 12/17 completed Not Available Not Available Not Available topiramat e 100 mg tablet 11/03 completed Not Available Not Available Not Available fluticaso ne propionat e 50 mcg/actua tion nasal spray,kvng pension spray 2 sprays (100 mcg) in each nostril by intranas al route once daily as needed 06/28 completed fluticas one 50 mcg/actu ation nasal spray,smith spension ;Prescri be Status: Prescrib ed on: 12/16/19 15 2:59PM;D iscontin ued Status: Disconti nued on: 06/28/20 15 3:03PM;U ser: grayn;Katherine t. Completi on: 01/15/20 15;Pharm acyVerif ied: 12/16/19 15 2:59PM Not Available Not Available Not Available amoxicill in 875 mg-potass ium clavulana te 125 mg tablet Take 1 tablet every 12 hours by oral route. 11/20 completed Not Available Not Available Not Available metoprolo l tartrate 25 mg tablet TAKE (1/2) TABLET BY MOUTH TWICE DAILY active Not Available Not Available No t Available losartan 100 mg-hydroc hlorothia zide 12.5 mg tablet TAKE 1 TABLET BY MOUTH EVERY DAY active Not Available Not Available No t Available Midrin 1 tid prn keating 04/02 completed midrin;R ecorded Status: Recorded on: 07/30/20 09 5:21PM;D iscontin ued Status: Disconti nued on: 04/02/20 11 3:58PM;U ser: el swanson;Est. Completi on: 02/26/20 10;Indic ation: - (-5) Not Available Not Available Not Available Vitamin B12 active Not Available Not Available Not Available levocetir izine 5 mg tablet active Not Available Not Available No t Available lidocaine 5 % topical ointment APPLY TO AFFECTED AREA(S) BY TOPICAL ROUTE 1-4 TIMES DAILY NEEDED 2024 active Not Available Not Available Not Avai lable Ubrelvy 100 mg tablet 05/14 completed Not Available Not Available Not Available Qulipta 60 mg tablet po prn active Not Available Not Available Not Available Vitals Date Recorded Body height Body mass index (BMI) Body weight Body temperature Heart rate Oxygen saturation Oxygen saturation in Arterial blood by Pulse oximetry Respiratory rate Systolic And Diastolic Provider Name and Address Organization Details Last Updated DateTime 5 167.64 cm 27.2 kg/m2 48264.3 2 g 97.7 [degF] 54 /min 98 % 98 % 18 /min 124/84 mm[Hg] Kaylin Tolliver [place] - [facility] 17:23:15 Social History Question Answer Notes LastModified by Organizat ion Details LastModified Time Tobacco Smoking Status Never Smoker Manny zavaleta, [place] - [facility] 10/02/2022 08:52:04 Do You Have An Advance Directive? Yes Information not available 11/03/2024 How Many Years Have You Consumed Alcohol? 45 Information not available 10/02/2022 Are You Blind Or Do You Have Difficulty Seeing? No [email or web address] Information not available 11/20/2022 Is Blood Transfusion Acceptable In An Emergency? Yes [email or web address] Information not available 10/02/2022 What Is Your Level Of Caffeine Consumption? Occasional [email or web address] Information not available 10/02/2022 How Much Tobacco Do You Chew? None [email or web address] Information not available 10/02/2022 Are You Deaf Or Do You Have Serious Difficulty Hearing? No [email or web address] Information not available 10/02/2022 What Type Of Diet Are You Following? REGULAR Information not available 10/02/2022 What Is The Highest Grade Or Level Of School You Have Completed Or The Highest Degree You Have Received? SW63593-3 [email or web address] Information not available 10/02/2022 Have There Been Any Changes To Your Family Or Social Situation? No [email or web address] Information not available 11/20/2022 What Is The Fluoride Status Of Your Home? Unknown [email or web address] Information not available 11/20/2022 Do You Have A Medical Power Of Ship[employer]? No [email or web address] Information not available 11/20/2022 What Was The Date Of Your Most Recent Tobacco Screening? 01/26/2025 [email or web address] Information not available 01/26/2025 How Many Children Do You Have? 2 [email or web address] Information not available 10/02/2022 Do You Use Protection During Sex? No [email or web address] Information not available 10/02/2022 What Is Your Relationship Status? [email or web address] Information not available 10/02/2022 Do You Use Your Seat Belt Or Car Seat Routinely? Yes [email or web address] Information not available 10/02/2022 Are You Sexually Active? No [email or web address] Information not available 11/24/2024 Do You Have Smoke And Carbon Monoxide Detectors In Your Home? Yes [email or web address] Information not available 10/02/2022 Are You Passively Exposed To Smoke? No [email or web address] Information not available 10/02/2022 Do You Use Sunscreen Routinely? Yes [email or web address] Information not available 10/02/2022 Has Tobacco Cessation Counseling Been Provided? No Information not available 05/11/2023 On What Date Was Tobacco Cessation Counseling Provided? 11/03/2024 Nonsmoker Information not available 11/03/2024 Do You Have Difficulty Walking Or Climbing Stairs? No [email or web address] Information not available 11/20/2022 Sex: Female Functional Status Question Answer Note LastModified by Organizat ion Details LastModified Time How many times per week do you consume alcohol? 1-2 times per week Information not available 05/11/2023 Do you or have you ever used smokeless tobacco? Never used smokeless tobacco [email or web address] Information not available 10/02/2022 Are you currently employed? Yes [email or web address] Information not available 10/02/2022 Do you have transportation difficulties? No [email or web address] Information not available 11/20/2022 Are you able to care for yourself? Yes [email or web address] Information n ot available 10/02/2022 Do you have difficulty dressing or bathing? No [email or web address] Information not available 11/20/2022 Do you or have you ever used e-cigarettes or vape? Never used electronic cigarettes [email or web address] Information not available 10/02/2022 What is your exercise level? Occasional [email or web address] Information not available 10/02/2022 Do you use any illicit or recreational drugs? No [email or web address] Information not available 11/20/2022 Do you or have you ever used any other forms of tobacco or nicotine? No [email or web address] Information not available 11/20/2022 What is your level of alcohol consumption? Occasional [email or web address] Information not available 10/02/2022 Are you able to walk? YESWOREST [email or web address] Information not available 11/20/2022 Do you have difficulty doing errands alone? 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 [id number] Information not available 11/03/2024 Do you have difficulty concentrating, remembering or making decisions? No [email or web address] Information no t available 11/20/2022 Family History Relationship Description Onset Age of this Age Resolved Age Notes LastModified by Organization Details LastModified Time Mother Chronic obstructive pulmonary disease [email or web address] Not available 2022 10:17:40 Father Dementia [email or web address] Not availabl e 10/02/2022 10:17:40 Sister Diabetes mellitus [email or web address] Not available 2022 10:17:40 Sister Diabetes mellitus [email or web address] Not available 2024 07:58:36 Medical History Condition Response Heart Disease Y Neuropathy Y Obesity Y Headaches Y Arthritis Y Hypertension Y Gynecological History Statement/Question Response Abnormal Pap N Date of LMP 09/28/1999 Post Menopausal Bleeding N STIs/STDs N Colposcopy 09/28/2017 HPV Vaccine N Current Control Method None Age at Menarche 16 Age at First Child 23 If Post Menopausal, Age at Menopause 46 Sexually Active? N Menses Monthly N Sexual Problems? N LMP Hormone Replacement Therapy N Obstetrics History GPAL:G 2 P 2 0 0 0 Type Value Full Term 2 Total 2 Immunizations Vaccine Type Date Status Note Provider Nam e and Address Organization Details Recorded Time influenza, unspecified formulation 5 completed Not Available [facility] 11[facility]12/[facility]23 07:58:20 COVID-19, mRNA, LNP-S, PF, 100 mcg/0.5mL dose or 50 mcg/0.25mL dose 1 completed Darryl Snedegar null, [place] - [facility] 11/20/2022 08:30:06 COVID-19, mRNA, LNP-S, PF, 100 mcg/0.5mL dose or 50 mcg/0.25mL dose 2 completed Darryl Snedegar null, [place] - [facility] 11/20/2022 08:30:06 COVID-19, mRNA, LNP-S, PF, 100 mcg/0.5mL dose or 50 mcg/0.25mL dose 1 completed Darryl Snedegar null, [place] - [facility] 11/20/2022 08:30:06 COVID-19, mRNA, LNP-S, PF, 100 mcg/0.5mL dose or 50 mcg/0.25mL dose 0 completed Darryl Snedeg[place] null, [place] - [facility] 11/20/2022 08:30:06 COVID-19, mRNA, LNP-S, bivalent, PF, 50 mcg/0.5 mL or 25mcg/0.25 mL dose 2 completed Darryl Snedegar null, [place] - [facility] 11/20/2022 08:30:06 pneumococcal polysaccharide PPV23 2 completed Darryl Snedegar null, [place] - [facility] 11/20/2022 08:30:06 Td (adult), 2 Lf tetanus toxoid, preservative free, adsorbed 7 completed Zehra Jvaier [facility] [place] [facility] 05/14/2023 09:34:43 Past Encounters Encounter ID Performer Location Encounter Start Date Encounter Closed Date Diagnosis/Indication Diagnosis SNOMED-CT Code Diagnosis ICD10 Code Diagnosis Note [id number] Mitch Rouse DO [facility] [address] [place] [address] 03/23/2025 16:59:30 03/23/2025 17:32:22 Trigeminal neuralgia 02095543 G50.0 Trigeminal neuralgia. Exacerbati on. Patient was advised to increase her carbamazep ine to 200 mg 4 times daily and if continues with symptoms after that titration it was recommende d to go to 300 mg 4 times a day for a total of 1200 mg daily. Patient will also be given 5% lidocaine cream to apply to the area. Osteoarthritis 663684001 M19.90 Osteoarthr itis. Controlled . Patient will continue meloxicam as needed. Takotsubo cardiomyopathy 424342009 I51.81 Takotsubo cardiomyop athy. Patient will continue the Plavix, metoprolol , aspirin as written by cardiology . Patient will continue to follow with cardiologi st and we will give her refills of these medicines today. Health Concerns Section Related Observation LastModified by Organization Jessika malone LastModified Time None Recorded Concern Status LastModified by Organization Details LastModified Time None Recorded Payers Encounter Date Sequence Insurance Name Policy Number Policy Pope Covered Member ID Pope Member ID Guarantor Name 03/23/2025 1 [employer] [id number] ([place]ICARE[place] Alejandra Saldivar [id number] Alejandra Saldivar 03/23/2025 2 [employer] (MEDICARE SUPPLEMENT) Alejandra Saldivar [id number] Alejandra Saldivar Notes Date Note Type Note Provider Name and Address Organization Details Recorded Time 03/23/2025 text/html 69-year-old adalgisa le seen in the office today for acute visit for worsening of her facial pain.Patient states that over Memorial Day weekend she was at a wedding and began having chest tightness with shortness of breath. Patient was seen at [facility] and had positive troponins. Patient had a cardiac catheterization the following day showing normal coronaries but an EF of 40 to 45%. Patient also had a negative CT for PE. Patient was diagnosed with Takotsubo's cardiomyopathy and was started on clopidogrel, metoprolol, atorvastatin, aspirin, and pravastatin. 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 Patient states it has really been taking her down recently. Patient is taking 300 mg twice daily of the carbamazepine currently. Patient states that her main symptoms are to the middle branch and she has pain to the left side of her nasal septum. Patient states that occasionally just putting pressure over the area helps. Patient is not sure what to do at this point because her symptoms are pretty significant. Mitch Rouse, [address], [place], [address], [place] - [facility] 03/23/2025 17:31:32 OBGyn Episode No OBEpisode recorded.
--- OUTSIDE RECORDS SUMMARY | 2025-03-27 09:46 | XMS_ITS | Data Portability ---
Author Organization [facility] Address [address] [place] [address] Assessment Encounter Date Assessment Date Assessment LastModified by Organization Details LastModified Time 11/03/2024 11/03/2024 Call office with questions or concerns. RTO for new or worsening symptoms. [email or web address] Not available 11/03/2024 11:39:25 11/24/2024 11/24/2024 Medicare Preventive Services Check List reviewed and printed for patient. [email or web address] Not available 11/17/2024 09:29:22 Plan of Treatment Reminders Order Date Submit Date Provider Last Modified By Organization Details Last Modified Time Details Appointments None recorded . Lab vitamin D, 25-hydro xy, total, serum 2024 025 [facility], [address], [place], [place], [address], 5 06:39:25 microalb umin/cre atinine, mass ratio, urine 2024 025 [facility], [address] [place], [address], 5 08:47:35 CMP, serum or plasma 2024 025 [facility], [address], [place], [place], [address], 5 06:39:23 CBC w/ auto diff 2024 025 [facility], [address], [place], [place], [address], 5 06:39:22 lipid panel, serum 2024 025 SEMMES [facility], [address] [place], [place], [address], 5 06:39:24 TSH + free T4, serum 2024 025 SEMMES [facility], [address], [place], [place], [address], 5 06:39:22 rapid flu (A+B) [email or web address] [place] [address], [address] [place] [address] Rd[address] [place], [address], 5 17:28:33 Referral None recorded . Procedures None recorded . Surgeries None recorded . Imaging DEXA, axial skeleton + vertebra l fracture assessme nt 2024 025 [facility] ([facility]), [address], [place], [address], 5 16:08:28 Medication Orders lidocain e 5 % topical ointment 2024 025 [facility], [address] [place] [address], [place], [address], 5 17:26:25 aspirin 81 mg tablet,d elayed release 2024 025 [facility], [address] [place] [address], [place], [address], 5 17:26:26 clopidog rel 75 mg tablet [address], [place], [address], 5 17:26:25 pantopra zole 40 mg tablet,d elayed release 2024 025 LITZY [facility], [address] [place] [address], [place], [address], 5 17:26:26 meloxica m 7.5 mg tablet 2024 025 [email or web address] [facility], [address] [place] [address], [place], [address], 5 17:49:37 carbamaz epine 200 mg tablet 2023 024 [facility], [address] [place] [address], [place], [address], 4 12:50:05 Patient TargetsNo targets recorded. Patient Instructions Encounter Date Encounter Id Patient Instructions Last Modified By Organization Details Last Modified Time 11/24/2024 [id number] advance directives: care instructions [email or web address] Not available 11/24/2024 08:35:43 learning about depression [email or web address] Not available 11/24/2024 08:35:43 body mass index: care instructions [email or web address] Not available 11/24/2024 08:35:43 learning about healthy weight [email or web address] Not available 11/24/2024 08:35:43 preventing falls : care instructions Not available 11/24/2024 08:35:43 medicare preventive services guide [email or web address] Not available 11/24/2024 08:35:43 Reason for Referral None Reported. Results Created Date Observation Date Name Description Value Unit Range Abnormal Flag Note LastModifiedBy Organization Detail LastModifiedTime 11/03/1911/03/2024 rapid flu (A+B) Flu positi ve Not Available [address] [place], [address], 11/03/2024 11:22:36 11/03/19 25 11/03/2024 rapid flu (A+B) Type A Not Available [facility] [address] [place], [address], 11/03/2024 11:22:36 11/24/19 25 11/25/2024 TSH+F REE T4 TSH 1.980 uIU/m L 0.450- 4.500 normal Not Available [facility] ([facility]) [address] [place], [address], 11/25/2024 06:39:22 11/24/19 25 11/25/2024 TSH+F REE T4 T4,free(dire ct) 1.03 NG/dL 0.82-1 .77 normal Not Available [facility] ([facility]) [address] [place], [address], 11/25/2024 06:39:22 11/24/19 25 11/25/2024 CBC WITH DIFFE RENTI AL/PL ATELE T WBC 5.4 x10e3 /uL 3.4-10 .8 normal Not Available [facility] ([facility]) [address] [place], [address], 11/25/2024 06:39:22 11/24/19 25 11/25/2024 CBC WITH DIFFE RENTI AL/PL ATELE T RBC 4.28 x10e6 /uL 3.77-5 .28 normal Not Available [facility] ([facility]) [address] [place], [address], 11/25/2024 06:39:22 11/24/19 25 11/25/2024 CBC WITH DIFFE RENTI AL/PL ATELE T hemoglobin 13.0 g/dL 11.1-1 5.9 normal Not Available [facility] ([facility]) [address] [place], [address], 11/25/2024 06:39:22 11/24/19 25 11/25/2024 CBC WITH DIFFE RENTI AL/PL ATELE T hematocrit 40.3 % 34.0-4 6.6 normal Not Available [facility] ([facility]) [address] [place], [address], 11/25/2024 06:39:22 11/24/19 25 11/25/2024 CBC WITH DIFFE RENTI AL/PL ATELE T MCV 94 fL 79-97 normal Not Available [facility] ([facility]) [address] [place], [address], 11/25/2024 06:39:22 11/24/19 25 11/25/2024 CBC WITH DIFFE RENTI AL/PL ATELE T MCH 30.4 pg 26.6-3 3.0 normal Not Available [facility] ([facility]) [address] [place], [address], 11/25/2024 06:39:22 11/24/19 25 11/25/2024 CBC WITH DIFFE RENTI AL/PL ATELE T MCHC 32.3 g/dL 31.5-3 5.7 normal Not Available [facility] ([facility]) [address] [place], [address], 11/25/2024 06:39:22 11/24/19 25 11/25/2024 CBC WITH DIFFE RENTI AL/PL ATELE T RDW 12.7 % 11.7-1 5.4 Not Available [facility] ([facility]) [address] [place], [address], 11/25/2024 06:39:22 11/24/19 25 11/25/2024 CBC WITH DIFFE RENTI AL/PL ATELE T platelets 363 x10e3 /uL 150-45 0 normal Not Available [facility] ([facility]) [address] [place], [address], 11/25/2024 06:39:22 11/24/19 25 11/25/2024 CBC WITH DIFFE RENTI AL/PL ATELE T neutrophils 40 % not estab. normal Not Available [facility] ([facility]) [address] [facility], [place], [address], 11/25/2024 06:39:22 11/24/19 25 11/25/2024 CBC WITH DIFFE RENTI AL/PL ATELE T lymphs 42 % not estab. normal Not Available [facility] ([facility]) [address] [facility], [place], [address], 11/25/2024 06:39:22 11/24/19 25 11/25/2024 CBC WITH DIFFE RENTI AL/PL ATELE T monocytes 12 % not estab. normal Not Available [facility] ([facility]) [address] [facility], [place], [address], 11/25/2024 06:39:22 11/24/19 25 11/25/2024 CBC WITH DIFFE RENTI AL/PL ATELE T eos 5 % not estab. normal Not Available [facility] ([facility]) [address] [facility], [place], [address], 11/25/2024 06:39:22 11/24/19 25 11/25/2024 CBC WITH DIFFE RENTI AL/PL ATELE T basos 1 % not estab. normal Not Available [facility] ([facility]) [address] [place], [address], 11/25/2024 06:39:22 11/24/19 25 11/25/2024 CBC WITH DIFFE RENTI AL/PL ATELE T immature cells PROTOZOOLOGIST Not Available [facility] ([facility]) [address] [place], [address], 11/25/2024 06:39:22 11/24/19 25 11/25/2024 CBC WITH DIFFE RENTI AL/PL ATELE T neutrophils (absolute) 2.1 x10e3 /uL 1.4-7. 0 normal Not Available [facility] ([facility]) [address] [place], [address], 11/25/2024 06:39:22 11/24/19 25 11/25/2024 CBC WITH DIFFE RENTI AL/PL ATELE T lymphs (absolute) 2.3 x10e3 /uL 0.7-3. 1 normal Not Available [facility] ([facility]) [address] [facility], [place], [address], 11/25/2024 06:39:22 11/24/19 25 11/25/2024 CBC WITH DIFFE RENTI AL/PL ATELE T monocytes(ab solute) 0.6 x10e3 /uL 0.1-0. 9 normal Not Available [facility] ([facility]) [address] [place], [address], 11/25/2024 06:39:22 11/24/19 25 11/25/2024 CBC WITH DIFFE RENTI AL/PL ATELE T eos (absolute) 0.3 x10e3 /uL 0.0-0. 4 normal Not Available [facility] ([facility]) [address] [place], [address], 11/25/2024 06:39:22 11/24/19 25 11/25/2024 CBC WITH DIFFE RENTI AL/PL ATELE T baso (absolute) 0.1 x10e3 /uL 0.0-0. 2 normal Not Available [facility] ([facility]) [address] [place], [address], 11/25/2024 06:39:22 11/24/19 25 11/25/2024 CBC WITH DIFFE RENTI AL/PL ATELE T immature granulocytes 0 % not estab. Not Available [facility] ([facility]) [address] [place], [address], 11/25/2024 06:39:22 11/24/19 25 11/25/2024 CBC WITH DIFFE RENTI AL/PL ATELE T immature grans (abs) 0.0 x10e3 /uL 0.0-0. 1 Not Available [facility] ([facility]) [address] [place], [address], 11/25/2024 06:39:22 11/24/19 25 11/25/2024 CBC WITH DIFFE RENTI AL/PL ATELE T NRBC PROTOZOOLOGIST Not Available [facility] ([facility]) [address] [place], [address], 11/25/2024 06:39:22 11/24/19 25 11/25/2024 CBC WITH DIFFE RENTI AL/PL ATELE T hematology comments: PROTOZOOLOGIST Not Available [facility] ([facility]) [address] [place], [address], 11/25/2024 06:39:22 11/24/19 25 11/25/2024 COMP. METAB OLIC PANEL (14) glucose 96 mg/dL 70-99 normal Not Available [facility] ([facility]) [address] [place], [address], 11/25/2024 06:39:23 11/24/19 25 11/25/2024 COMP. METAB OLIC PANEL (14) BUN 13 mg/dL 8-27 normal Not Available [facility] ([facility]) [address] [place], [address], 11/25/2024 06:39:23 11/24/19 25 11/25/2024 COMP. METAB OLIC PANEL (14) creatinine 0.76 mg/dL 0.57-1 .00 normal Not Available [facility] ([facility]) [address] [place], [address], 11/25/2024 06:39:23 11/24/19 25 11/25/2024 COMP. METAB OLIC PANEL (14) eGFR 85 mL/mi n/1.7 3 >59 normal Not Available [facility] ([facility]) [address] [place], [address], 11/25/2024 06:39:23 11/24/19 25 11/25/2024 COMP. METAB OLIC PANEL (14) BUN/creatini ne ratio 17 12-28 normal Not Available [facility] ([facility]) [address] [facility] [place], [address], 11/25/2024 06:39:23 11/24/19 25 11/25/2024 COMP. METAB OLIC PANEL (14) sodium 138 mmol/ L 134-14 4 normal Not Available [facility] ([facility]) [address] [facility] [place], [address], 11/25/2024 06:39:23 11/24/19 25 11/25/2024 COMP. METAB OLIC PANEL (14) potassium 4.4 mmol/ L 3.5-5. 2 normal Not Available [facility] ([facility]) [address] [facility] [place], [address], 11/25/2024 06:39:23 11/24/19 25 11/25/2024 COMP. METAB OLIC PANEL (14) chloride 99 mmol/ L 96-106 normal Not Available [facility] ([facility]) [address] [facility] [place], [address], 11/25/2024 06:39:23 11/24/19 25 11/25/2024 COMP. METAB OLIC PANEL (14) carbon dioxide, total 25 mmol/ L 20-29 normal Not Available [facility] ([facility]) [address] [facility] [place], [address], 11/25/2024 06:39:23 11/24/19 25 11/25/2024 COMP. METAB OLIC PANEL (14) calcium 9.4 mg/dL 8.7-10 .3 normal Not Available [facility] ([facility]) [address] [facility] [place], [address], 11/25/2024 06:39:23 11/24/19 25 11/25/2024 COMP. METAB OLIC PANEL (14) protein, total 6.8 g/dL 6.0-8. 5 normal Not Available [facility] ([facility]) [address] [facility] [place], [address], 11/25/2024 06:39:23 11/24/19 25 11/25/2024 COMP. METAB OLIC PANEL (14) albumin 4.1 g/dL 3.9-4. 9 normal Not Available [facility] ([facility]) [address] [facility] [place], [address], 11/25/2024 06:39:23 11/24/19 25 11/25/2024 COMP. METAB OLIC PANEL (14) globulin, total 2.7 g/dL 1.5-4. 5 Not Available [facility] ([facility]) [address] [facility] [place], [address], 11/25/2024 06:39:23 11/24/19 25 11/25/2024 COMP. METAB OLIC PANEL (14) bilirubin, total 0.3 mg/dL 0.0-1. 2 normal Not Available [facility] ([facility]) [address] [facility] [place], [address], 11/25/2024 06:39:23 11/24/19 25 11/25/2024 COMP. METAB OLIC PANEL (14) alkaline phosphatase 93 IU/L 44-121 normal Not Available [facility] ([facility]) [address] [facility] [place], [address], 11/25/2024 06:39:23 11/24/19 25 11/25/2024 COMP. METAB OLIC PANEL (14) AST (SGOT) 17 IU/L 0-40 normal Not Available [facility] ([facility]) [address] [facility] [place], [address], 11/25/2024 06:39:23 11/24/19 25 11/25/2024 COMP. METAB OLIC PANEL (14) ALT (SGPT) 11 IU/L 0-32 normal Not Available [facility] ([facility]) [address] [place], [address], 11/25/2024 06:39:23 11/24/19 25 11/25/2024 LIPID PANEL cholesterol, total 227 mg/dL 100-19 9 above high normal Not Available [facility] ([facility]) [address] [place], [address], 11/25/2024 06:39:24 11/24/19 25 11/25/2024 LIPID PANEL triglyceride s 46 mg/dL 0-149 normal Not Available [facility] ([facility]) [address] [place], [address], 11/25/2024 06:39:24 11/24/19 25 11/25/2024 LIPID PANEL HDL cholesterol 82 mg/dL >39 normal Not Available [facility] ([facility]) [address] [place], [address], 11/25/2024 06:39:24 11/24/19 25 11/25/2024 LIPID PANEL VLDL cholesterol len 8 mg/dL 5-40 Not Available [facility] ([facility]) [address] [place], [address], 11/25/2024 06:39:24 11/24/19 25 11/25/2024 LIPID PANEL LDL chol calc ([facility]) 137 mg/dL 0-99 above high normal Not Available [facility] ([facility]) [address] [place], [address], 11/25/2024 06:39:24 11/24/19 25 11/25/2024 LIPID PANEL LDL calc comment: PROTOZOOLOGIST Not Available [facility] ([facility]) [address] [place], [address], 11/25/2024 06:39:24 11/24/19 25 11/25/2024 VITAM IN D, 25-HY DROXY vitamin D, 25-hydroxy 28.5 NG/mL 30.0-1 00.0 below low normal Vitam in D defic iency has been defin ed by the Insti tute of Medic ine and an Endoc rine Socie ty pract ice guide line as a level of serum 25-OH vitam in D less than 20 ng/mL (1,2) . The Endoc rine Socie ty went on to furth er defin e vitam in D insuf ficie ncy as a level betwe en 21 and 29 ng/mL (2). 1. IOM (Inst itute of Medic ine). 2010. Avelino ry refer helene zackary es for calci um and D. Deniz penn [place]: The [facility] Press . 2. Jensen ramires [place], Angel Luis delcid [place], Manolo off-F errar i KEATING, et al. Evalu ation , treat ment, and preve ntion of vitam in D defic iency : an Endoc rine Socie ty clini len pract ice guide line. JCEM. 2010; 96(7) :1911 -30. Not Available [facility] ([facility]) [address], [place], [address], 11/25/2024 06:39:25 11/24/19 25 11/24/2024 micro album in/cr eatin ine, mass ratio , urine Microalbumin 30 mg/L Not Available [facility] [address] [place], [address], 11/24/2024 08:34:03 11/24/19 25 11/24/2024 micro album in/cr eatin ine, mass ratio , urine Creatinine 100mg/ dL Not Available [facility] [address] [place], [address], 11/24/2024 08:34:03 11/24/19 25 11/24/2024 micro album in/cr eatin ine, mass ratio , urine Ratio <30 mg/g Not Available [facility] [address] [place], [address], 11/24/2024 08:34:03 02/18/20 25 02/10/2025 DEXA, axial skele ton + verte bral fract ure asses sment No observ ation record ed. [email or web address] [facility] (Med Record) [address], [place], [address], 02/23/2025 11:38:55 Result Notes None recorded. Problems Name Problem SNOMED Code Status Onset Date Resolution Date Notes Provider Name and Address Organization Details Recorded Time Migraine 66424201 Active 2022 Crystaldasha Davidson null, [place] - [facility] 3 09:49:45 Trigeminal neuralgia 13742769 Active 2022 Crystale Davidson null, [place] - [facility] 3 09:48:55 Osteoarthritis 259606426 Active 2022 Crystale [place] null, [place] - [facility] 3 09:49:17 Essential hypertension 98127513 Active 2022 Crystale Davidson null, [place] - [facility] 3 09:49:31 Influenza caused by Influenza A virus 544505021 Active 2024 Amie Turner, [employer] [address], [place], [address], [place] - [facility] 5 11:39:21 Seasonal allergy 393987965 Active 2024 Mitch Rouse, DO [address], [place], [address], [place] - [facility] 5 12:43:07 Senile osteopenia 19943731 Active 2024 Mitch Rouse, DO [address], [place], [address], [place] - [facility] 5 17:49:18 Takotsubo cardiomyopathy 054575392 Active 2024 Mitch Rouse, DO [address], [place], [address], [place] - [facility] 5 17:22:46 Problem Notes None recorded. Procedures Surgical History Date Name Laterality Status Provider Name and Address Organization Details Recorded Time 5 Advance Care Planning completed Darryl Dumontegar [place] - [facility] 11/17/2024 09:29:23 5 Functional Status Assessed completed Darryl Snedegar [place] - [facility] 11/17/2024 09:29:23 4 Advance Care Planning completed Darryl Snedegar [place] - [facility] 11/02/2023 09:34:20 4 Functional Status Assessed completed Darryl Snedegar [place] [facility] 11/02/2023 09:34:20 3 Advance Care Planning completed Darryl Timegar [place] - [facility] 11/20/2022 08:29:26 3 Functional Status Assessed completed Darryl Snedegar [place] [facility] 11/20/2022 08:29:26 0 Eye Surgery completed Manny Davidson [place] - [facility] 10/02/2022 10:17:42 9 Cardiac Cath completed Manny [place] - [facility] 10/02/2022 10:17:42 8 Colposcopy completed Manny [place] - [facility] 10/02/2022 10:17:40 5 Tubal Ligation completed Rachel Canas [place] - [facility] 11/24/2024 08:04:17 5 Adnexal surgery completed aMnny Davidson [place] - [facility] 10/02/2022 10:17:42 Imaging Results None recorded. Procedure Notes None recorded. Medical Equipment None Reported. Allergies Allergen ID Allergen Name Allergen Category Reaction Reaction Severity Criticality Documentation Date Start Date Code Code System Note Provider Name and Address Organization Details Recorded Time 407426 Imitrex medicatio n anaphylax is severe high 10/02/2022 41655 3 RxNorm Manny zavaleta, [place] - [facility] [...] tablet;P rescribe Status: Prescrib ed on: 08/01/20 5:12PM;D iscontin ued Status: Disconti nued on: 08/14/20 4:42PM;U ser: gored;Es t. Completi on: 08/06/20 15;Pharm acyVerif ied: 08/01/20 5:12PM Not Available Not Available Not Available [...] Disconti nued on: 12/16/19 15 2:33PM;U ser: arelyj; Est. Completi on: 08/20/20 14;Pharm acyVerif ied: 07/21/20 14 10:35AM Not Available Not [...] on: 08/27/20 16;Indic ation: Hyperten julian - (401);Phar Max fied: 02/29/20 16 4:39PM Not Available [...] 16 4:39PM;U ser: grayn;Es t. Completi on: 03/06/20 16;Pharm acyVerif ied: 02/29/20 16 4:39PM Not Available Not [...] 13 4:15PM;U ser: gored;Es t. Completi on: 05/13/20 12 Not Available [...] Disconti nued on: 06/28/20 15 3:03PM;U ser: grayn;Es t. Completi on: 01/15/20 15;Pharm acyVerif ied: [...] Details Last Updated DateTime 5 167.64 cm 26.5 kg/m2 13563.8 5 g 99.4 [degF] 100 /min 98 % 98 % 18 /min 124/86 mm[Hg] Andree Dsouza [place] - [facility] 5 11:17:28 Date Recorded Body height Body mass index (BMI) Body weight Heart rate Respiratory rate Oxygen saturation Oxygen saturation in Arterial blood by Pulse oximetry Systolic And Diastolic Provider Name and Address Organization Details Last Updated DateTime 5 167.64 cm 26.5 kg/m2 96752.1 5 g 76 /min 18 /min 97 % 97 % 126/72 mm[Hg] Rachel de la torre [place] - [facility] 5 08:03:38 Date Recorded Body height Body mass index (BMI) Body weight Body temperature Heart rate Oxygen saturation Oxygen saturation in Arterial blood by Pulse oximetry Respiratory rate Systolic And Diastolic Provider Name and Address Organization Details Last Updated DateTime 5 167.64 cm 27.6 kg/m2 26435 g 97.9 [degF] 60 /min 98 % 98 % 18 /min 136/90 mm[Hg] Kaylni Tolliver [place] - [facility] 5 17:26:14 Date Recorded Body height Body mass index (BMI) Body weight Body temperature Heart rate Oxygen saturation Oxygen saturation in Arterial blood by Pulse oximetry Respiratory rate Systolic And Diastolic Provider Name and Address Organization Details Last Updated DateTime 5 167.64 cm 27.2 kg/m2 04327.3 2 g 97.7 [degF] 54 /min 98 % 98 % 18 /min 124/84 mm[Hg] Kaylin Tolliver [place] - [facility] 5 17:23:15 Date Recorded Body height Body mass index (BMI) Body weight Respiratory rate Oxygen saturation Oxygen saturation in Arterial blood by Pulse oximetry Body temperature Heart rate Systolic And Diastolic Provider Name and Address Organization Details Last Updated DateTime 4 167.64 cm 26.5 kg/m2 24063.1 5 g 16 /min 97 % 97 % 98 [degF] 67 /min 138/75 mm[Hg] Rachel de la torre [place] - [facility] 4 10:06:45 Social History Question Answer Notes LastModified by Organizat ion Details LastModified Time Tobacco Smoking Status Never Smoker Manny Davidson [place], [place] - [facility] 10/02/2022 08:52:04 Do You Have An Advance Directive? Yes Information not available 11/03/2024 How Many Years Have You Consumed Alcohol? 45 [email or web address] Information not available 10/02/2022 Are You Blind Or Do You Have Difficulty Seeing? No [email or web address] Information not available 11/20/2022 Is Blood Transfusion Acceptable In An Emergency? Yes [email or web address] Information not available 10/02/2022 What Is Your Level Of Caffeine Consumption? Occasional [email or web address] Information not available 10/02/2022 How Much Tobacco Do You Chew? None [email or web address] Information not available 10/02/2022 Are You Deaf Or Do You Have Serious Difficulty Hearing? No [email or web address] Information not available 10/02/2022 What Type Of Diet Are You Following? REGULAR [email or web address] Information not available 10/02/2022 What Is The Highest Grade Or Level Of School You Have Completed Or The Highest Degree You Have Received? [id number] Information not available 10/02/2022 Have There Been Any Changes To Your Family Or Social Situation? No [email or web address] Information not available 11/20/2022 What Is The Fluoride Status Of Your Home? Unknown [email or web address] Information not available 11/20/2022 Do You Have A Medical Power Of Hat Finisher? No [email or web address] Information not available 11/20/2022 What Was The Date Of Your Most Recent Tobacco Screening? 01/26/2025 Information not available 01/26/2025 How Many Children Do You Have? 2 [email or web address] Information not available 10/02/2022 Do You Use Protection During Sex? No [email or web address] Information not available 10/02/2022 What Is Your Relationship Status? Information not available 10/02/2022 Do You Use Your Seat Belt Or Car Seat Routinely? Yes [email or web address] Information not available 10/02/2022 Are You Sexually Active? No [email or web address] Information not available 11/24/2024 Do You Have Smoke And Carbon Monoxide Detectors In Your Home? Yes [email or web address] Information not available 10/02/2022 Are You Passively Exposed To Smoke? No [email or web address] Information not available 10/02/2022 Do You Use Sunscreen Routinely? Yes [email or web address] Information not available 10/02/2022 Has Tobacco Cessation Counseling Been Provided? No Information not available 05/11/2023 On What Date Was Tobacco Cessation Counseling Provided? 11/03/2024 Nonsmoker [email or web address] Information not available 11/03/2024 Do You Have Difficulty Walking Or Climbing Stairs? No [email or web address] Information not available 11/20/2022 Sex: Female Functional Status Question Answer Note LastModified by Organizat ion Details LastModified Time How many times per week do you consume alcohol? 1-2 times per week Information not available 05/11/2023 Do you or have you ever used smokeless tobacco? Never used smokeless tobacco [email or web address] Information not available 10/02/2022 Are you currently employed? Yes Information not available 10/02/2022 Do you have transportation difficulties? No [email or web address] Information not available 11/20/2022 Are you able to care for yourself? Yes [email or web address] Information n ot available 10/02/2022 Do you have difficulty dressing or bathing? No [email or web address] Information not available 11/20/2022 Do you or have you ever used e-cigarettes or vape? Never used electronic cigarettes [email or web address] Information not available 10/02/2022 What is your exercise level? Occasional [email or web address] Information not available 10/02/2022 Do you use any illicit or recreational drugs? No [email or web address] Information not available 11/20/2022 Do you or have you ever used any other forms of tobacco or nicotine? No [email or web address] Information not available 11/20/2022 What is your level of alcohol consumption? Occasional [email or web address] Information not available 10/02/2022 Are you able to walk? YESWOREST [email or web address] Information not available 11/20/2022 Do you have difficulty doing errands alone? No [email or web address] Information not available 11/20/2022 What is your occupation? [employer] [email or web address] Information not available 10/02/2022 Mental Status Question Answer Note LastModified by Organizat ion Details LastModified Time Do you feel stressed (tense, restless, nervous, or anxious, or unable to sleep at night)? [id number] Information not available 11/03/2024 Do you have difficulty concentrating, remembering or making decisions? No [email or web address] Information no t available 11/20/2022 Family History Relationship Description Onset Age of this Age Resolved Age Notes LastModified by Organization Details LastModified Time Mother Chronic obstructive pulmonary disease [email or web address] Not available 2022 10:17:40 Father Dementia [email or web address] Not availabl e 10/02/2022 10:17:40 Sister Diabetes mellitus [email or web address] Not available 2022 10:17:40 Sister Diabetes mellitus [...] influenza, unspecified formulation 5 completed Not Available [facility] 11/12/2023 07:58:20 COVID-19, mRNA, LNP-S, PF, 100 mcg/0.5mL dose or 50 mcg/0.25mL dose 1 completed Darryl zavaleta, [place] - [facility] 11/20/2022 08:30:06 COVID-19, mRNA, [...] mL dose 2 completed Darryl Snedegar null, [place] - [facility] 11/20/2022 08:30:06 pneumococcal polysaccharide PPV23 2 completed Darryl Snedeg[place] - [facility] 11/20/2022 08:30:06 Td (adult), 2 Lf tetanus toxoid, preservative free, adsorbed 7 completed Zehra Javier null, [place] - [facility] 05/14/2023 09:34:43 Past Encounters Encounter ID Performer Location Encounter Start Date Encounter Closed Date Diagnosis/Indication Diagnosis SNOMED-CT Code Diagnosis ICD10 Code Diagnosis Note [id number] Bk Sarah MD [facility] [address] [place] [address] 10/02/2022 08:42:21 10/02/2022 10:30:28 Migraine without aura 34727194 G43.009 chronic, using only an abortifice nt at this time Trigeminal neuralgia 316 23954 G50.0 chronic, stable Essential hypertension 12771581 I10 chronic, stable Osteoarthritis 395640004 M19.90 chronic, likely stable [id number] Bk Sarah MD [facility] [address] [place] [address] [address] 11/20/2022 08:15:27 11/20/2022 09:12:59 Screening for malignant neoplasm of colon 233644391 Z12.11 Adult heal th examination 536059333 Z00.00 Depression screening 171 430219 Z13.89 Examinatio n of blood pressure 610123242 Z01.30 Diet education 43689702 Z71.3 Counseling 769301176 Z71 .82 Exercise counseling . Patient encouraged to exercise 30 minutes 5 days a week. At [facility] ed risk for falls 586081745 Z91.81 STEADI FAST screening score of . Advance care planning 71 0702243 Z71.89 Migraine 12529259 G43.90 9 Body mass index 25-29 - overweight 840518830 Z68.29 Overweight 721162821 E66 .3 [id number] Bk Sarah MD [address] [place] [address] 05/14/2023 09:29:55 05/14/2023 10:29:54 Trigeminal neuralgia 16150764 G50.0 chronic, stable Screening mammography of bilateral breasts 4721411758 68497 Z12.31 Screening for malignant neoplasm of colon 668953023 Z12.11 not due for 7 years, Dr. Earl 3 years ago completed Osteoarthritis 730988151 M19.90 chronic, likely stable Essential hypertension 65233358 I10 chronic, stable Dysfunctio n of bilateral eustachian tubes 2797430925 072890 H69.93 [id number] Bk Sarah MD [address] [place] [address] 11/12/2023 07:57:54 11/12/2023 08:48:06 Adult health examination 475211637 Z00.00 Depression screening 171 419934 Z13.31 Examinatio n of blood pressure 021445325 Z01.30 Diet education 91815214 Z71.3 Counseling 756630664 Z71 .82 Exercise counseling . Patient encouraged to exercise 30 minutes 5 days a week. At [facility] ed risk for falls 242193326 Z91.81 STEADI FAST screening score of . Advance care planning 71 9951985 Z71.89 Overweight 790256546 E66 .3 Essential hypertension 89494244 I10 chronic, stable Endocrine/ metabolic screening 891523098 Z13.565 [id number] Bk Sarah MD [address] [address] 11/19/2023 10:44:59 11/19/2023 11:43:12 Hyponatremia 63454138 E87.1 OTC measures at this time [id number] Bk Sarah MD [address] [place] [address] 12/14/2023 09:49:12 12/14/2023 10:50:06 Hyponatremia 54595696 E87.1 OTC measures at this time Pain of mu ltiple joints 47146749 M25.50 [id number] Bk Sarah MD [address] [place] [address] 12/15/2023 10:17:55 12/15/2023 10:51:47 Rib pain 163965691 R07.81 [id number] Bk Sarah MD [address] [place] [address] 12/22/2023 15:44:32 12/22/2023 16:04:10 Costal chondritis 95475383 M94.0 responding well [id number] Bk Sarah MD [address] [place] [address] 05/17/2024 10:51:22 05/17/2024 11:52:50 Trigeminal neuralgia 78459817 G50.0 [id number] Bk Sarah MD [address] [address] 06/16/2024 09:50:21 06/16/2024 10:52:04 Trigeminal neuralgia 03477425 G50.0 Pt has sufficient gabapentin 300mg from last Rx; she will only be taking 1 tab QHS moving forward [id number] Amie Turner APRN [address] [place] [address] 11/03/2024 10:35:56 11/03/2024 11:47:14 Viral screening 150965147 Z11.59 Influenza caused by Influenza A virus 327804393 J09.X2 Advised to drink plenty of fluids, run a cool-mist humidifier in room at night, gargle salt water for sore throat, and get plenty of rest. Patient should avoid over-exert ion and reduce exposure to irritants such as smoke, cold, dry air, and dust. Antihistam ine and decongesta nt usage was discussed and recommenda tions made. [id number] Bk Sarah MD [facility] [address] [place] [address] 11/24/2024 07:57:05 11/24/2024 09:35:27 Adult health examination 657769817 Z00.00 Depression screening 171 641921 Z13.31 A depression screening was completed via a standardiz ed screening tool. 5 minutes were spent discussing depression screening results and risk factors. Examinatio n of blood pressure 606753667 Z01.30 Diet education 10314866 Z71.3 Counseling 885061585 Z71 .82 Exercise counseling . Patient encouraged to exercise 30 minutes 5 days a week. At [facility] ed risk for falls 889360807 Z91.81 STEADI FAST screening score of ___6__. Advance care planning 71 1267519 Z71.89 Body mass index 25-29 - overweight 247734457 Z68.26 Overweight 759999761 E66 .3 Essential hypertension 20269457 I10 chronic, stable Endocrine/ metabolic screening 052769019 Z13.520 [id number] Mitch Rouse DO [facility] [address] [place] [address] 01/26/2025 17:01:12 01/26/2025 17:51:03 Seasonal allergy 950450707 J30.2 Allergies. Controlled . Patient to continue levocetiri zine and generic Pataday as written. Trigeminal neuralgia 316 [address]85 G50.0 Trigeminal neuralgia. Controlled . Patient will continue carbamazep ine as written (CBC/LFTs are normal). Essential hypertension 15406709 I10 Hypertensi on. Controlled . Patient will continue carvedilol and losartan-H CTZ as written. Labs are up to date. Migraine 75198613 G43.90 9 Migraine. Controlled . Patient will continue the q. Ellipta as needed. At [facility] risk of cardiovascular disease 1824230288 1711583 Z91.89 Increased CV risk, 10.4% based on PREVENT. Recommend initiation of statin therapy due to risk >10%. Osteoarthritis 667127557 M19.90 Osteoarthr itis. Controlled . Patient will continue meloxicam as needed. Senile osteopenia 193533 06 M85.80 Senile osteopenia . Patient will have a DEXA reordered today at [facility] for ongoing management . Further treatment based on those results. [id number] Mitch Rouse [facility] [address] [place] [address] 03/23/2025 16:59:30 03/23/2025 17:32:22 Trigeminal neuralgia 41803279 G50.0 Trigeminal neuralgia. Exacerbati on. Patient was advised to increase her carbamazep ine to 200 mg 4 times daily and if continues with symptoms after that titration it was recommende d to go to 300 mg 4 times a day for a total of 1200 mg daily. Patient will also be given 5% lidocaine cream to apply to the area. Osteoarthritis 364897041 M19.90 Osteoarthr itis. Controlled . Patient will continue meloxicam as needed. Takotsubo cardiomyopathy 587004329 I51.81 Takotsubo cardiomyop athy. Patient will continue the Plavix, metoprolol , aspirin as written by cardiology . Patient will continue to follow with cardiologi and we will give her refills of these medicines today. Health Concerns Section Related Observation LastModified by Organization Detai ls LastModified Time None Recorded Concern Status LastModified by Organization Details LastModified Time None Recorded Advance Directives Directive Y: Payers Insurance Date Sequence Insurance Name Policy Number Policy Pope Covered Member ID Pope Member ID Guarantor Name 03/21/2025 1 [employer] - [place] - [facility] (MEDICARE) Alejandra Saldivar [id number] Alejandra Saldivar 11/20/2023 2 [employer] (MEDICARE SUPPLEMENT) Alejandra Saldivar 03/21/2025 [place]ARE[place] Alejandra Saldivar [id number] Alejandra Saldivar 11/20/2023 2 [employer] (MEDICARE SUPPLEMENT) Alejandra Saldivar [id number] Alejandra Saldivar Notes Date Note Type Note Provider Name and Address Organization Details Recorded Time 06/16/2024 text/html Pt presents for f/u after starting gabapentin for trigeminal neuralgia. Pt was having breakthrough episodes with just carbamazepine. She was started on mikaela 300mg PO TID at last appt; Pt states x3/day way too sedating . Can tolerate 1 tab at bed time. Pt will continue carbamazepine for daytime use with 1 tab gabapentin 300mg QHS. Bk Sarah MD [address], [place], [address], [facility] - [facility] 06/16/2024 12:51:00 11/03/2024 text/html Patient presents with c/o headache, nausea, body aches, fever, cough, and congestion x 4 days.Denies chest pain, SOA, vomiting, and diarrhea. Amie Turner APRN [address], [place], [address], [facility] - [facility] 11/03/2024 17:28:14 11/24/2024 text/html Medicare Annual Wellness VisitReported bypatient.Diet and Nutrition:healthy diet Fracture Risk:no history of fractures; no recent explained fracture; no sudden unexplained fractures; no previous musculoskeletal injuries Physical Activity:exercises on a regular basis; recent increase in physical activity; good physical condition Depression Risk:never feels sad, empty, or tearful; no loss of interest in activities; no significant changes in weight; no sleep disturbances or insomnia; no agitation; no loss of energy; no feelings of worthlessness or guilt; no thoughts of suicide; no history of depression; no history of mood disorders Orientation:no disorientation to time; no disorientation to date; no disorientation to place Concentration and Memory:no decreased concentrating ability; no memory lapses or loss; does not forget words Speech/Motor difficulties:no speech difficulties; no difficulty expressing formulated concepts; no difficulty with fine manipulative tasks; no difficulty writing/copying; no slowed reaction time; does not knock things over when trying to pick them up Hearing:no loss of hearing Vision:no vision problems Activities of Daily Living:able to bathe with limited or no assistance; able to contol urination and bowels; able to dress with limited or no assistance; able to feed self with limited or no assistance; able to get out of chair or bed with limited or no assistance; able to groom with limited or no assistance; able to toilet with limited or no assistance Instrumental Activities of Daily Living:able to do house work with limited or no assistance; able to grocery shop with limited or no assistance; able to manage medications with limited or no assistance; able to manage money with limited or no assistance; able to prepare meals with limited or no assistance; able to use the phone with limited or no assistance Falls Risk Assessment:no frequent falls while walking; no fall in the past year; no fall since last visit; no dizziness/vertigo Home Safety:no unsafe cosme hazzards; no unsafe stairs; no unsafe gas appliances; working smoke/CO detectors; wears protective head gear for biking/high velocity; use of seatbelts; practicing 'safer sex'; no vision or hearing loss while driving; no fire arms; has hand bars in the bathroom/shower; good lighting in the home Pt presents for annual health examination. Pt states that she is in her usual state of health and has no acute complaints today. She states no significant illnesses over the last year; describes a reasonable diet and takes no exercise. She is a smoker. She states did get Flu vacc but refuses COVID at this time. She is over due for colorectal cancer screening but refuses at this time. Please see RoS. Bk Sarah MD [facility] [address], [place], [address], [place] - [facility] 11/24/2024 12:08:16 01/26/2025 text/html 69-year-old adalgisa patel seen in the office today to discuss medication.Patient is currently taking carbamazepine for treatment of her trigeminal neuralgia. Patient was also given gabapentin to take for the same diagnosis. Patient states she is currently taking carbamazepine in the morning and taking the gabapentin at night. Patient states she did not like the way the gabapentin made her feel and was wondering if she could only take carbamazepine for management.Patient also states she is having issues with her allergies. Patient is taking Xyzal currently and states that she picked up wkgq-cap-brfdbdg Pataday to help with her eye symptoms. Mitch MilnerinDO [address], [place], [address], [place] - [facility] 01/26/2025 17:49:41 03/23/2025 text/html 69-year-old adalgisa le seen in the office today for acute visit for worsening of her facial pain.Patient states that over Memorial Day weekend she was at a wedding and began having chest tightness with shortness of breath. Patient was seen at [facility] and had positive troponins. Patient had a cardiac catheterization the following day showing normal coronaries but an EF of 40 to 45%. Patient also had a negative CT for PE. Patient was diagnosed with Takotsubo's cardiomyopathy and was started on clopidogrel, metoprolol, atorvastatin, aspirin, and pravastatin. Patient has followed up with her clinical biochemical geneticist and has continued on everything except for [...] because her symptoms are pretty significant. Mitch Solano, [address], [place], [address], [place] - [facility] 03/23/2025 17:31:32 OBGyn Episode No OBEpisode recorded.
--- OUTSIDE RECORDS SUMMARY | 2025-03-27 09:46 | XMS_ITS | Clinical Summary ---
Author Organization Healthcare Address [address] [place], [place] [address] Care Team Providers Care Machine Erector Name Role Phone Rosemary Thompson ALEXANDRE Primary Care Provider [phone] Allergies No known active allergies Medications chlorhexidine (Peridex) 0.12 % solution Use 15 mL in the mouth or throat 2 (two) times a day. 473 mL 06/13/2021 Active Social History Tobacco Use Types Packs/Day Years Used Date Smoking Tobacco: Never Assessed Comments Unknown Sex and Gender Information Value Date Recorded Sex Assigned at Not on file Legal Sex Female 7:00 PM EDT Gender Identity Not on file Sexual Orientation Not on file Last Filed Vital Signs Vital Sign Reading Time Taken Comments Blood Pressure 154/82 06/13/2021 1:59 PM EDT Pulse 104 06/13/2021 1:59 PM EDT Temperature - - Respiratory Rate - - Oxygen Saturation - - Inhaled Oxygen Concentration - - Weight 84.8 kg (187 lb) 06/13/2021 1:59 PM EDT Height 167.6 cm (5' 6 ) 06/13/2021 1:59 PM EDT Body Mass Index 30.18 06/13/2021 1:59 PM EDT Plan of Treatment Health Maintenance Due Date Last Done Comments Dental Oral Exam 1955 Dental Prophylaxis 1955 Dental X-Ray: Bitewings 1955 Dental X-Ray: Full Mouth 1955 [facility]-Bone Density Scan 1955 [facility]-Depression Screening 1955 [facility]-Infant/Child/Adol SDOH Screenings 1955 [facility]- SDOH Screenings 1973 [facility]-Adult SDOH Screenings 1973 [facility]-DTaP,Tdap,and Td Vaccine s (1 - Tdap) 12/04/1996 12/03/1996 CT Colonography 2000 Colonoscopy 2000 FIT-DNA 2000 FIT 2000 FOBT 2000 Sigmoidoscopy 2000 [facility]-Colorectal Cancer Screening 2000 [facility]-Pneumococcal Vaccine: 50 + Years (1 of 1 - PCV) 2005 [facility]-Zoster Vaccines (1 of 2) 2005 AWQ-PDPKS-56 Vaccine (3 - season) 2024 10/26/2020, 09/26/2020 [facility]-Influenza Vaccine (Seaso n Ended) 2025 [facility]-RSV Vaccine: 60+ Years o r (1 - 1-dose 75+ series) 2030 HPV Vaccines Aged Out No longer eligi ble based on patient's age to complete this topic [facility]-HIB Vaccines Aged Out No longer e ligible based on patient's age to complete this topic [facility]-Hepatitis A Vaccines Aged Out No longer eligible based on patient's age to complete this topic [facility]-IPV Vaccines Aged Out No longer e ligible based on patient's age to complete this topic [facility]-Rotavirus Vaccines Aged Out No lo nger eligible based on patient's age to complete this topic Insurance MEDICARE [facility] Care Teams Machine Erector Relationship Specialty Start Date End Date Rosemary Thompson APRN [address] [facility] [address] [place] [address] PCP - General 02/08/21
--- OUTSIDE RECORDS SUMMARY | 2025-03-27 09:46 | XMS_ITS | Clinical Summary ---
Author Organization [facility] Address [facility] [place] [address] Phone Care Team Providers Care Exchange Trouble Shooter Name Role Phone Unavailable Primary Care Provider Unavailabl e Social History Tobacco Use Types Packs/Day Years Used Date Smoking Tobacco: Never Assessed Comments Unknown Sex and Gender Information Value Date Recorded Sex Assigned at Not on file Legal Sex Female 10:22 PM EDT Gender Identity Not on file Sexual Orientation Not on file Plan of Treatment Health Maintenance Due Date Last Done Comments Wellness Exam Medicare 1958 Hepatitis C Screening 1973 DTaP/TDaP/Td (1 - Tdap) 12/04/1996 12/03/1996 Colonoscopy 2000 FIT 2000 Sigmoidoscopy 2000 Virtual Colonography 2000 Zoster (1 of 2) 2005 Bone Density Screening 2020 Pneumococcal Vaccine 50+ (2 of 2 - PCV) 10/24/2022 10/24/2021 COVID-19 Vaccine ( season) 2024 07/23/2022, 02/17/2022, 08/01/2021, Additional history exists Influenza Vaccine (Season Ended) 2025 Cologuard 12/14/2025 12/14/2022 Colon Cancer Screening 12/14/2025 Breast Cancer Screening 02/09/2026 02/10/2024 Hepatitis B Vaccine Aged Out No longe r eligible based on patient's age to complete this topic Meningococcal B Vaccine Aged Out No l onger eligible based on patient's age to complete this topic Procedures Procedure Name Priority Date/Time Associated Diagnosis Comments MM MAMMO DIGITAL JONNATHAN SCREEN BILAT Routine 02/10/2024 10:50 AM EDT Encounter for screening mammogram for malignant neoplasm of breast from Last 3 Months or Most Recently Relevant to Health Maintenance Results * MM MAMMO DIGITAL JONNATHAN SCREEN BILAT (02/10/2024 10:50 AM EDT) Anatomical Region Laterality Modality Breast Bilateral Mammography 02/18/2024 10:1 5 AM EDT Impressions 02/18/2024 10:15 AM EDT Negative ([id number]) ~ RECOMMENDATION: Routine screening mammogram in 1 year. ~ DISCLAIMER * Any patient with a palpable abnormality, unexplained by breast imaging, should be managed on clinical basis by the attending physician. * Breast imaging has a false negative rate of 15%. * The patient was notified by mail of the results of this examination. *The patient's information was entered into a reminder system with a target due date for the next mammogram, in accordance with the [employer] and the Society of Breast Imaging recommendations. Narrative 02/18/2024 10:15 AM EDT Procedure:MM MAMMO DIGITAL JONNATHAN SCREEN BILAT ~ Reason for exam: screening, asymptomatic. Z12.31-Encounter for screening mammogram for malignant neoplasm of [id number] ~ MM MAMMO DIGITAL JONNATHAN SCREEN BILAT Bilateral CC and MLO view(s) were taken. There are scattered fibroglandular densities. Prior study comparison: Compared with prior studies the most recent being 11/07/2019 No mammographic evidence of malignancy. ~ Procedure Note Ramin Mckenzie III, MD - 02/18/2024 Procedure:MM MAMMO DIGITAL JONNATHAN SCREEN BILAT ~ Reason for exam: screening, asymptomatic. Z12.31-Encounter for screening mammogram for malignant neoplasm of [id number] ~ MM MAMMO DIGITAL JONNATHAN SCREEN BILAT Bilateral CC and MLO view(s) were taken. There are scattered fibroglandular densities. Prior study comparison: Compared with prior studies the most recentbeing 11/07/2019 No mammographic evidence of malignancy. ~ IMPRESSION: Negative ([id number]) ~ RECOMMENDATION: Routine screening mammogram in 1 year. ~ DISCLAIMER * Any patient with a palpable abnormality, unexplained by breast imaging, should be managed on clinical basis by the attending physician. * Breast imaging has a false negative rate of 15%. * The patient was notified by mail of the results of this examination. *The patient's information was entered into a reminder system with atarget due date for the next mammogram, in accordance with the [employer] and the Society of Breast Imaging recommendations. Bk Sarah MD IM MAMMOGRAPHY ORDERABLES Final Result from Last 3 Months or Most Recently Relevant to Health Maintenance Insurance [place]ICARE [place] [address] [place] [address]
--- OUTSIDE RECORDS SUMMARY | 2025-03-27 09:46 | XMS_ITS | Continuity of Care Document ---
Author Organization [facility] [place] Address [address] [place] [address]. [place] [address] Assessment No assessment recorded. Plan of Treatment Reminders Order Date Submit Date Provider Last Modified By Organization Details Last Modified Time Details Appointments None recorded. Lab None recorded. Referral None recorded. Procedures None recorded. Surgeries None recorded. Imaging DEXA, axial skeleton + vertebral fracture assessment 2024 025 [facility] (Scheduling), [address], [place], [address], 16:08:28 Medication Orders meloxicam 7.5 mg tablet [address] [facility] [place], [address] [place] [address], [place], [address], 17:49:37 Patient TargetsNo targets recorded. Patient InstructionsNo instructions recorded. Reason for Referral None Reported. Results Created Date Observation Date Name Description Value Unit Range Abnormal Flag Note LastModifiedBy Organization Detail LastModifiedTime 02/18/20 25 02/10/2025 DEXA, axial skele ton + verte bral fract ure asses sment No observ ation record ed. [email or web address] [facility] (Med Record) [address], [place], [address], 02/23/2025 11:38:55 Result Notes None recorded. Problems Name Problem SNOMED Code Status Onset Date Resolution Date Notes Provider Name and Address Organization Details Recorded Time Migraine 56362681 Active 2022 Crystale Davidson null, [place] - [facility] 3 09:49:45 Trigeminal neuralgia 77155280 Active 2022 Manny Davidson null, [place] - [facility] 3 09:48:55 Osteoarthritis 445057743 Active 2022 Manny Davidson null, [place] - [facility] 3 09:49:17 Essential hypertension 29254796 Active 2022 Manny Davidson null, [place] - [facility] 3 09:49:31 Influenza caused by Influenza A virus 679086978 Active 2024 Amie Turner, FINANCE EFFECTIVENESS MANAGER [address], [place], [address], [place] - [facility] 5 11:39:21 Seasonal allergy 738234028 Active 2024 Mitch Rouse, DO [address], [place], [address], [place] - [facility] 5 12:43:07 Senile osteopenia 67217066 Active 2024 Mitch Rouse, DO [address], [place], [address], [place] - [facility] 5 17:49:18 Takotsubo cardiomyopathy 856737038 Active 2024 Mitch Rouse, DO [address], [place], [address], [place] - [facility] 5 17:22:46 Problem Notes None recorded. Procedures Surgical History Date Name Laterality Status Provider Name and Address Organization Details Recorded Time 5 Advance Care Planning completed Darryl Snedegar [place] - [facility] 11/17/2024 09:29:23 5 Functional Status Assessed completed Darryl Snedegar [place] - [facility] 11/17/2024 09:29:23 4 Advance Care Planning completed Darryl Snedegar [place] - [facility] 11/02/2023 09:34:20 4 Functional Status Assessed completed Darryl Snedegar [place] - [facility] 11/02/2023 09:34:20 3 Advance Care Planning completed Darryl Snedegar [place] - [facility] 11/20/2022 08:29:26 3 Functional Status [...] Name and Address Organization Details Recorded Time 789664 Imitrex medicatio n anaphylax is severe high 10/02/2022 89964 3 RxNorm Manny [place], [place] - [facility] [...] Disconti nued on: 12/16/19 15 2:33PM;U ser: [email or web address]; Est. Completi on: 08/20/20 14;Pharm acyVerif ied: [...] on: 08/27/20 16;Indic ation: Hyperten julian - ( 00);Alice Santana fied: 02/29/20 16 4:39PM Not Available Not [...] ser: grayn;Es t. Completi on: 03/06/20 16;Pharm acyVgregoryf ied: 02/29/20 16 [...] Updated DateTime 5 167.64 cm 27.6 kg/m2 70170 g 97.9 [degF] 60 /min 98 % 98 % 18 /min 136/90 mm[Hg] Kaylin Tolliver [place] - [facility] 5 17:26:14 Social History Question Answer Notes LastModified by [...] Blood Transfusion Acceptable In An Emergency? Yes [email or web address] Information not available 10/02/2022 What Is Your Level Of Caffeine Consumption? Occasional Information not available 10/02/2022 How Much Tobacco Do You Chew? None [email or web address] Information not available 10/02/2022 Are You Deaf Or Do You Have Serious Difficulty Hearing? No [email or web address] Information not available 10/02/2022 What Type Of Diet Are You Following? REGULAR [email or web address] Information not available 10/02/2022 What Is The Highest Grade Or Level Of School You Have Completed Or The Highest Degree You Have Received? [id number] Information not available 10/02/2022 Have There Been Any Changes To Your Family Or Social Situation? No [email or web address] Information not available 11/20/2022 What Is The Fluoride Status Of Your Home? Unknown [email or web address] Information not available 11/20/2022 Do You Have A Medical Power Of Clean Room Operator? No [email or web address] Information not available 11/20/2022 What Was The Date Of Your Most Recent Tobacco Screening? 01/26/2025 [email or web address] Information not available 01/26/2025 How Many Children Do You Have? 2 [email or web address] Information not available 10/02/2022 Do You Use Protection During Sex? No Information not available 10/02/2022 What Is Your Relationship Status? Information not available 10/02/2022 Do You Use Your Seat Belt Or Car Seat Routinely? Yes [email or web address] Information not available 10/02/2022 Are You Sexually Active? No [email or web address] Information not available 11/24/2024 Do You Have Smoke And Carbon Monoxide Detectors In Your Home? Yes [email or web address] Information not available 10/02/2022 Are You Passively Exposed To Smoke? No [email or web address] Information not available 10/02/2022 Do You Use Sunscreen Routinely? Yes [email or web address] Information not available 10/02/2022 Has Tobacco Cessation Counseling Been Provided? No Information not available 05/11/2023 On What Date Was Tobacco Cessation Counseling Provided? 11/03/2024 Nonsmoker [email or web address] Information not available 11/03/2024 Do You Have Difficulty Walking Or Climbing Stairs? No [email or web address] Information not available 11/20/2022 Sex: Female Functional Status Question Answer Note LastModified by Organizat ion Details LastModified Time How many times per week do you consume alcohol? 1-2 times per week Information not available 05/11/2023 Do you or have you ever used smokeless tobacco? Never used smokeless tobacco [email or web address] Information not available 10/02/2022 Are you currently employed? Yes [email or web address] Information not available 10/02/2022 Do you have transportation difficulties? No [email or web address] Information not available 11/20/2022 Are you able to care for yourself? Yes [email or web address] Information n ot available 10/02/2022 Do you have difficulty dressing or bathing? No [email or web address] Information not available 11/20/2022 Do you or have you ever used e-cigarettes or vape? Never used electronic cigarettes [email or web address] Information not available 10/02/2022 What is your exercise level? Occasional [email or web address] Information not available 10/02/2022 Do you use any illicit or recreational drugs? No [email or web address] Information not available 11/20/2022 Do you or have you ever used any other forms of tobacco or nicotine? No [email or web address] Information not available 11/20/2022 What is your level of alcohol consumption? Occasional Information not available 10/02/2022 Are you able to walk? YESWOREST [email or web address] Information not available 11/20/2022 Do you have difficulty doing errands alone? 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 [id number] Information not available 11/03/2024 Do you have difficulty concentrating, remembering or making decisions? No [email or web address] Information no t available 11/20/2022 Family History Relationship Description Onset Age of this Age Resolved Age Notes LastModified by Organization Details LastModified Time Mother Chronic obstructive pulmonary disease [email or web address] Not available 2022 10:17:40 Father Dementia [email or web address] Not availabl e 10/02/2022 10:17:40 Sister Diabetes mellitus [email or web address] Not available 2022 10:17:40 Sister Diabetes mellitus [email or web address] Not available 2024 07:58:36 Medical History Condition Response Obesity Y Neuropathy Y Heart Disease Y Arthritis Y Headaches Y Hypertension Y Gynecological History Statement/Question Response [...] influenza, unspecified formulation 5 completed Not Available [facility] 11/12/2023 07:58:20 COVID-19, mRNA, LNP-S, [...] polysaccharide PPV23 2 completed Darryl Snedeg[place] null, [place] - [facility] 11/20/2022 08:30:06 Td (adult), 2 Lf tetanus toxoid, preservative free, adsorbed 7 completed Zehra Javier null, [place] - [facility] 05/14/2023 09:34:43 Past Encounters Encounter ID Performer Location Encounter Start Date Encounter Closed Date Diagnosis/Indication Diagnosis SNOMED-CT Code Diagnosis ICD10 Code Diagnosis Note [id number] Mitch Rouse [facility] [address] [place] [address] 01/26/2025 17:01:12 01/26/2025 17:51:03 Seasonal allergy 545293018 J30.2 Allergies. Controlled . Patient to continue levocetiri zine and generic Pataday as written. Trigeminal neuralgia 316 76169 G50.0 Trigeminal neuralgia. Controlled . Patient will continue carbamazep ine as written (CBC/LFTs are normal). Essential hypertension 54124480 I10 Hypertensi on. Controlled . Patient will continue carvedilol and losartan-H CTZ as written. Labs are up to date. Migraine 35989647 G43.90 9 Migraine. Controlled . Patient will continue the q. Ellipta as needed. At [facility] risk of cardiovascular disease 4964525385 7335074 Z91.89 Increased CV risk, 10.4% based on PREVENT. Recommend initiation of statin therapy due to risk >10%. Osteoarthritis 421395830 M19.90 Osteoarthr itis. Controlled . Patient will continue meloxicam as needed. Senile osteopenia 902687 06 M85.80 Senile osteopenia . Patient will have a DEXA reordered today at [facility] for ongoing management . Further treatment based on those results. Health Concerns Section Related Observation LastModified by Organization Detai ls LastModified Time None Recorded Concern Status LastModified by Organization Details LastModified Time None Recorded Payers Encounter Date Sequence Insurance Name Policy Number Policy Pope Covered Member ID Pope Member ID Guarantor Name 01/26/2025 1 [employer] [place] [id number] ([place]ICARE[place] Alejandra A Kelsch [id number] Alejandra Kelsch 01/26/2025 2 [employer] (MEDICARE SUPPLEMENT) Alejandra Kelsch [id number] Alejandra Kelsch Notes Date Note Type Note Provider Name and Address Organization Details Recorded Time 01/26/2025 text/html 69-year-old adalgisa patel seen in [...] currently and states that she picked up kxas-tgk-mdnjqom Pataday to help with her eye symptoms. Mitch Rouse, [address], [place], [address], [place] [facility] 01/26/2025 17:49:41 OBGyn Episode No OBEpisode recorded.
--- NOTE | 2025-03-27 11:00 | CA_ITS ---
APPROVED REPORT EXAM: Limited 2D Echocardiogram Packaging Machine Operator: Annie Linton CRT Ht: 5 ft 6 in Wt: 163lbs BSA: 1.83 BP: 151/63 mmHg Indications: Cardiomyopathy M-Mode Dimensions RVDd 2.22 cm (0.9-2.6) LVDd 5.66 cm (3.5-5.7) LVDs 3.86 cm (3.5-5.7) IVSd 0.81 cm (0.6-1.1) PWd 0.69 cm (0.6-1.1) EF (Teich) 59.20% FS 31.80% EDV (Teich) 157.50 mL ESV (Teich) 64.30 mL Other Information Study Quality: Fair Conclusion This is a limited TTE to evaluate for LV systolic function. Limited windows were obtained. The left ventricle is normal in size. There is normal LV wall thickness. There is normal global LV systolic function. There are no regional wall motion abnormalities present. LVEF is 55%. Electronically signed by : Teresa Lipscomb MD 03/27/2025 12:46:27
== END 2025-03-27 23:59 | disposition home or self-care (01) ==
LOC: RT 09:44
PROVIDERS: PCP Family Medicine; Visit Provider Physician Assistant
DX: I21.4 Non-ST elevation (NSTEMI) myocardial infarction (principal); I10 Essential (primary) hypertension; I42.9 Cardiomyopathy, unspecified
CPT/HCPCS: 93308